=== PATIENT | female | born 1990 | race Caucasian/White ===

== ENCOUNTER 2023-02-27 03:26 | Emergency (ER) | payer MEDICAID, SELFPAY ==
[2023-02-27 03:54] VITALS: BP 115/78; PULSE 115; RESP 20; TEMP 36.7; O2SAT 99; BMI 29.3
[2023-02-27 04:22] LABS: Alanine Aminotransferase 9 U/L (0-31); Albumin Level 4.5 g/dL (3.5-5.0); Alkaline Phosphatase 77 U/L (39-117); Anion Gap 12 (12-20); Aspartate Amino Transferase 13 U/L (5-31); Bilirubin Total 0.6 mg/dL (0.0-1.0); Blood Urea Nitrogen 14 mg/dL (9-16); Calcium 9.5 mg/dL (8.4-10.2); Carbon Dioxide 26 mmol/L (22-29); Chloride 107 mmol/L (96-108); Creatinine Clr Calc Pharmacy 101.7; Estimated Glomerular Filt Rate > 60; Glucose Random 98 mg/dL (60-115); Lipase 16 U/L (8-78); Potassium 3.3 mmol/L (3.3-5.1); Sodium 142 mmol/L (135-145); Total Protein 7.5 g/dL (6.5-8.0)
[2023-02-27 04:23] LABS: Hemoglobin 13.4 g/dl (12.0-16.0); Mean Corpuscular HGB Conc 33.5 g/dl (31.0-35.0); Mean Corpuscular Hemoglobin 30.7 pg (27.0-33.0); Mean Corpuscular Volume 91.5 fL (80.0-98.0); Mean Platelet Volume 10.7 fL (9.4-12.3); Platelet Count 295 X10*3/uL (160-400); Red Blood Count 4.37 X10*6/uL (4.20-5.50); Red Cell Distribution Width 12.4 % (11.0-16.0)
--- OUTSIDE RECORDS SUMMARY | 2023-02-27 04:38 | XMS_ITS | Continuity of Care Document ---
Author Name Unknown Organization [facility] Address [address] [place] [address]- Care Team Providers Care Medical Transcriptionist Name Role Phone Not on Staff, PCP Primary Care Physician Unavail able Encounter [facility] Date(s): 09/21/22 - 09/21/[address] [address]- Discharge Disposition: A-D/C Home Attending Physician: Jarrod Mcmullen MD Admitting Physician: Jarrod Mcmullen MD Referring Physician: Not on Staff, Referring MD Allergies, Adverse Reactions, Alerts Substance Reaction Severity Status amoxicillin Maculopapular rash Active penicillin Active aspirin Active Nuts diff breathing Active Immunizations Given and Recorded Vaccine Date Status Refusal Reason tetanus/diphtheria/pertussis, acel(Tdap) 1 10/28/19 Given 1Result Comment: [facility]#[id number] Medications hydrOXYzine hydrochloride 25 mg oral tablet 1 tablet = 25 mg, By Mouth, Daily, # 30 tablet, 0 Refills, Maintenance, 03/26/22 4:00:00 EDT, Tablet, Partial fill upon patient request if the prescription is for a schedule II opioid drug. Start Date: 03/26/22 Status: Ordered omeprazole 20 mg oral delayed release tablet 1 tablet = 20 mg, By Mouth, Daily, # 30 tablet, 0 Refills, Maintenance, 03/26/22 5:49:00 EDT, EC Tablet, [id number], Partial fill upon patient request if the prescription is for a schedule IIopioid drug., 165, cm, 03/26/22 3:57:00 EDT, Height... Start Date: 03/26/22 Status: Ordered Problem List Condition Confirmation Course Effective Dates Status H ealth Status Informant History of conization of cervix Confirmed Active Hyperthyroidism Confirmed Active Nausea/vomiting in Confirmed Active Confirmed Active Thyroid function test abnormal Confirmed Active Uterine scar from previous delivery Confirmed Active Results Radiology Reports * Exam Date Time Procedure Performing Provider Status 09/21/22 11:00 AM Hand Min 3 Views Right Teodoro Araujo herminio; Sotero (Verified) Notes: (Hand Min 3 Views Right) Reason For Exam: Pain RESULT: Hand Min 3 Views Right Right hand, 3 views Hx of Present Illness: 5th finger pain after crush injury COMPARISON: None. FINDINGS: 5th finger is obscured by overlapping bones on the lateral view but there is no evidence of fracture or malalignment. No arthritic changes. Normal soft tissues. IMPRESSION: Normal. WSN: [id number] Ordering Physician: Hayden Ferguson Dictated By: Toribio Hicks MD Dictated Date/Time: 09/21/22 11:11 a Reviewed By: Toribio Hicks MD Signed By: Toribio Hicks MD Signed Date/Time: 09/21/22 11:11 am Transcribed By: AMADOU Transcribed Date/Time: 09/21/22 11:09 am Vital Signs Most recent to oldest [Reference Range]: 1 Height 158 cm (09/21/22 10:37 AM) Weight 72.6 kg (09/21/22 10:37 AM) Oxygen Saturation [94-100 %] 97 % (09/21/22 10:37 AM) Pulse Rate [55-90 bpm] 92 bpm *H* (09/21/22 10:37 AM) Blood Pressure [90-138/55-84 mm Hg] 112/ 74mm Hg (09/21/22 10:37 AM) Respiratory Rate [16-30 br/min] 17 br/mi n (09/21/22 10:37 AM) Temperature [96.8-100.4 DegF] 97.9 DegF (09/21/22 10:37 AM) Mode of Delivery (Oxygen) Room air (09/21/22 10:37 AM) Temperature Route Temporal (09/21/22 10:37 AM) Dry Weight 72.6 kg (09/21/22 10:37 AM) Dry Weight Obtained Via Standing scale (09/21/22 10:37 AM) Social History Social History Type Response Smoking Status Former smoker, quit more than 30 days ago entered on: 11/19/19 Sex Note * Kemi GARCIA, Jarrod Linares: PERFORM Event Display: Patient Education Leaflets Authored Date: [id number] Finger Bruise (Contusion) ?? [id number] Finger Bruise (Contusion) You have a bruise (contusion). There is swelling and some bleeding under the skin, but no broken bones. This injury??generally??takes a few days to a few weeks to heal. During that time, the bruise will typically change in color from??reddish, to purplish-blue, to greenish-yellow, then to yellowish-brown. A finger bruise may be treated with a splint or gin tape (taping the injured finger to the one next to it for support). Minor bruises likely will need no other treatment. Home care ??? Elevate the hand to reduce pain and swelling.??As much as possible, sit or lie down with the hand raised about the level of your heart.??This is most important during the first 48 hours. ??? Ice the finger to help reduce pain and swelling.??Wrap a cold source (ice pack??or ice cubes in a plastic bag) in a thin towel. Apply to the bruised finger for 20 minutes every 1 to 2 hours the first day. Continue this 3 to 4 times a day until the pain and swelling goes away. ??? If gin tapewas applied and it becomes wet or dirty, change it. You may replace it with paper, plastic, or cloth tape.??Before taping, put a thin strip of cotton or gauze between the fingers to absorb sweat. This will help prevent any breakdown of skin or fungal infections.? Unless another medicine was prescribed, you can take acetaminophen, ibuprofen, or naproxen??to control pain. Talk with your provider before taking these medicines if you have chronic liver or kidney disease or ever had a stomach ulcer or gastrointestinal bleeding. ?? Follow up Follow up with your healthcare provider, or as advised. Call if you are not improving within??1 to 2 weeks. ?? When to get medical advice?? Call your healthcare provider right away if any of the following occur: ??? Pain or swelling gets worse ??? Finger, hand, or arm becomes cold, blue, numb, or tingly ??? Signs of infection:??Warmth, drainage, or increased redness or pain around the bruise ??? You can't move the injured finger or hand? Frequent bruising for unknown reason ??? The fingernail becomes raised, and blood seems to be collecting under the nail. This may need to be drained. ?? Last Reviewed Date: 2022 ?? [id number] [employer]. All rights reserved. This information is not intended as a substitute for professional medical care. Always follow your healthcare professional's instructions. ?? * Kemi GARCIA, Jarrod Linares: PERFORM Event Display: Patient Education Leaflets Authored Date: [id number] Hand Bruise ?? [id number] Hand Bruise You have a bruise (contusion). There is swelling and some bleeding under the skin, but no broken bones. This injury??generally??takes a few days to a few weeks to heal. ??During that time, the bruisewill typically change in color from??reddish, to purple-blue, to greenish-yellow, then to yellow-brown. Home care ??? Raise (elevate) the hand to reduce pain and swelling.??As much as possible, sit or lie down with the hand raised about the level of your heart.??This is especially important during the first 48 hours. ??? Ice the hand to help reduce pain and swelling.??To make an ice pack, place ice cubes in a plastic bag that seals at the top. Wrap the bag in a thin towel. Apply to the bruised areafor 20 minutes every 1 to 2 hours the first day. Continue this 3 to 4 times a day until the pain and swelling goes away. ??? Unless another medicine was prescribed, you can take acetaminophen, ibuprofen, or naproxen??to control pain. Talk with your healthcare provider before using these medicines if you have chronic liver or kidney disease. Also talk with your provider first if you've ever had a stomach ulcer or digestive tract bleeding. ?? Follow up Follow up with your healthcare provider as advised. Call if you don't get better in??1 to 2 weeks. ?? When to get medical advice?? Call your healthcare provider right away if any of the following occur: ??? Increased pain or swelling ??? Arm becomes cold, blue, numb, or tingly ??? Signs of infection:??warmth, drainage, or increased redness or pain around the bruise ??? Inability to move the injured hand, any of the fingers, orthe joints of the finger ??? Frequent bruising for unknown reasons ?? Last Reviewed Date: 2021 ?? [id number] [employer]. All rights reserved. This information is not intended as a substitute for professional medical care. Always follow your healthcare professional's instructions. ?? XR Hand - right GE 3 Views * Miguel , ELANA S: TRANSCRIToribio Corea MD: VERIFY Event Display: Result: Authored Date: [id number] Right hand, 3 views Hx of Present Illness: 5th finger pain after crush injury COMPARISON: None. FINDINGS: 5th finger is obscured by overlapping bones on the lateral view but there is no evidence of fracture or malalignment. No arthritic changes. Normal soft tissues. IMPRESSION: Normal. WSN: [id number] Ordering Physician: Hayden Ferguson Dictated By: Toribio Hicks MD Dictated Date/Time: 09/21/22 11:11 a Reviewed By: Toribio Hicks MD Signed By: Toribio Hicks MD Signed Date/Time: 09/21/22 11:11 am Transcribed By: AMADOU Transcribed Date/Time: 09/21/22 11:09 am Patient Care team information Care Team Personnel Name: Not on Staff, PCP Position: [facility] Physician (General Medicine) Member Role: PCP Name: Jarrod Mcmullen MD Position: [facility] ED Medicine MD Member Role: Admitting Physician Address: Address: [address] [place] [address]- [place] [address]- Name: Itzel Carlin RN Position: [facility] ED RN W/OE and Tasks Member Role: Patient Care Provider Care Team Related Persons Name: OSEAS MORENO Address: home [address] [place] [address] Name: NOÉ ALBERT Address: [employer] Address: home [address] [place] [address] Name: KRISTIN ALBERT Address: home [address] [place] [address] Name: FRANCESCO VILLARREAL Address: home [address] [place] [address]
--- OUTSIDE RECORDS SUMMARY | 2023-02-27 04:38 | XMS_ITS | Continuity of Care Document ---
Author Name Unknown Organization [facility] Address [address] [place] [address]- Care Team Providers Care Radio Adjuster Name Role Phone Not on Staff, PCP Primary Care Physician Unavail able Encounter [facility] Date(s): 06/05/19 - 06/12/[address] [address]- [facility] Attending Physician: Deepika Grossman DO Allergies, Adverse Reactions, Alerts Substance Reaction Severity Status amoxicillin Maculopapular rash Active penicillin Active aspirin Active Nuts diff breathing Active Medications Colace sodium 100 mg oral capsule 100 mg, 1, capsule, By Mouth, 2 times a day, PRN, # 30 capsule, Refills 1, Tot. Refills 1, Maintenance, for constipation, 06/05/19 19:03:00 EST, Route to [facility]ically, [id number], 158, cm, 06/05/19 15:36:00 EST, Height, 63.6, kg, 01... Start Date: 06/05/19 Status: Ordered propylthiouracil 50 mg oral tablet 1 tablet = 50 mg, By Mouth, 2 times a day, # 90 tablet, 1 Refills, Maintenance, 06/05/19 19:02:00 EST, Tablet, [id number], 158, cm, 06/05/19 15:36:00 EST, Height, 63.6, kg, 05/28/19 14:38:00 EST, Dry Weight Start Date: 06/05/19 Status: Ordered Reglan 10 mg oral tablet 1 tablet = 10 mg, By Mouth, 4 times a day, for 10 days, # 40 tablet, 0 Refills, Acute 06/15/19 19:03:00 EST, 06/05/19 19:03:00 EST, Tablet, [facility] #[id number], 158, cm, 06/05/19 15:36:00 EST, Height,63.6, kg, 05/28/19 14:38:00 EST, Dry Weight Start Date: 06/05/19 Stop Date: 06/15/19 Status: Ordered Zofran ODT 4 mg oral tablet, disintegrating 1 tablet = 4 mg, By Mouth, Every 8 hours, PRN as needed for nausea/vomiting, # 30 tablet, 0 Refills, Maintenance, 06/05/19 19:03:00 EST, DIS Tablet, [facility]/pharm[facility] #[id number], 158, cm, 06/05/19 15:36:00 EST, Height, 63.6, kg, 05/28/19 14:38:00 EST, Dry Weight Start Date: 06/05/19 Status: Ordered Problem List Condition Effective Dates Status Health Status Inform ant Hyperthyroidism(Confirmed) Active Nausea/vomiting in (Confirmed) Active (Confirmed) Active Social History Social History Type Response Smoking Status Former smoker, quit more than 30 days ago entered on: 07/12/18 Sex
--- OUTSIDE RECORDS SUMMARY | 2023-02-27 04:38 | XMS_ITS | Continuity of Care Document ---
Author Name Unknown Organization [facility] Address [address] [place] [address]- Care Team Providers Care Jumbo Operator Name Role Phone Not on Staff, PCP Primary Care Physician Unavail able Encounter [facility] N[facility] [id number] Date(s): 05/28/19 - 05/28/[address] [address]- [facility] Discharge Disposition: A-D/C Home Attending Physician: Andrew Quigley MD Admitting Physician: Andrew Quigley MD Referring Physician: Not on Staff, Referring MD Allergies, Adverse Reactions, Alerts Substance Reaction Severity Status amoxicillin Maculopapular rash Active penicillin Active aspirin Active Nuts diff breathing Active Medications Benadryl 25 mg oral tablet 25 mg, 1, tablet, By Mouth, 3 times a day, 0 Refills, Maintenance Start Date: 05/28/19 Status: Ordered Zofran ODT 4 mg oral tablet, disintegrating 1 tablet = 4 mg, By Mouth, Every 8 hours, PRN as needed for nausea/vomiting, # 20 tablet, 0 Refills, Maintenance, 05/28/19 16:25:00 EST, DIS Tablet, [facility]/pharm[facility] #[id number], 158, cm, 05/28/19 14:38:00 EST, Height, 63.6, kg, 05/28/19 14:38:00 EST, Dry Weight Start Date: 05/28/19 Status: Ordered Vital Signs Most recent to oldest [Reference Range]: 1 2 Height 158 cm (05/28/19 2:38 PM) Weight 63.6 kg (05/28/19 2:38 PM) Oxygen Saturation [94-100 %] 100 % (05/28/19 5:09 PM) 100 % (05/28/19 2:38 PM) Pulse Rate [55-90 bpm] 80 bpm (05/28/19 5:09 PM) 93 bpm *H* (05/28/19 2:38 PM) Blood Pressure [90-138/55-84 mm Hg] 106/ 75mm Hg (05/28/19 5:09 PM) 113/58mm Hg (05/28/19 2:38 PM) Respiratory Rate [16-30 br/min] 16 br/mi n (05/28/19 2:38 PM) Temperature [96.8-100.4 DegF] 99.4 DegF (05/28/19 2:38 PM) Mode of Delivery (Oxygen) Room air (05/28/19 5:09 PM) Room air (05/28/19 2:38 PM) Blood pressure sites Arm, left (05/28/19 5:09 PM) Temperature Route Temporal (05/28/19 2:38 PM) Dry Weight 63.6 kg (05/28/19 2:38 PM) Social History Social History Type Response Smoking Status Former smoker, quit more than 30 days ago entered on: 07/12/18 Sex
--- OUTSIDE RECORDS SUMMARY | 2023-02-27 04:38 | XMS_ITS | Continuity of Care Document ---
Author Name Unknown Organization [facility] Address [address] [place] [address]- Care Team Providers Care Residential Door Unit Installer Name Role Phone Not on Staff, PCP Primary Care Physician Unavail able Encounter [facility] [id number] Date(s): 06/12/20 - 06/12/[address] [address]- Discharge Disposition: A-D/C Home Attending Physician: Liam Reeves MD Admitting Physician: Liam Reeves MD Referring Physician: Not on Staff, Referring MD Allergies, Adverse Reactions, Alerts Substance Reaction Severity Status amoxicillin Maculopapular rash Active penicillin Active aspirin Active Nuts diff breathing Active Immunizations Given and Recorded Vaccine Date Status Refusal Reason tetanus/diphtheria/pertussis, acel(Tdap) 1 10/28/19 Given 1Result Comment: [facility]#[id number] Problem List Condition Effective Dates Status Health Status Inform ant History of conization of cervix(Confirmed) Active Hyperthyroidism(Confirmed) Active Nausea/vomiting in (Confirmed) Active (Confirmed) Active Thyroid function test abnormal(Confirmed) Active Uterine scar from previous c esarean delivery(Confirmed) Active Vital Signs Most recent to oldest [Reference Range]: 1 Height 158 cm (06/12/20 12:04 PM) Weight 75 kg (06/12/20 12:04 PM) Oxygen Saturation [94-100 %] 98 % (06/12/20 12:04 PM) Pulse Rate [55-90 bpm] 93 bpm *H* (06/12/20 12:04 PM) Blood Pressure [90-138/55-84 mm Hg] 106/ 71mm Hg (06/12/20 12:04 PM) Respiratory Rate [16-30 br/min] 16 br/mi n (06/12/20 12:04 PM) Temperature [96.8-100.4 DegF] 97.9 DegF (06/12/20 12:04 PM) Mode of Delivery (Oxygen) Room air (06/12/20 12:04 PM) Blood pressure sites Arm, left (06/12/20 12:04 PM) Temperature Route Temporal (06/12/20 12:04 PM) Dry Weight 75 kg (06/12/20 12:04 PM) Weight Obtained Via Standing scale (06/12/20 12:04 PM) Dry Weight Obtained Via Standing scale (06/12/20 12:04 PM) Social History Social History Type Response Smoking Status Former smoker, quit more than 30 days ago entered on: 11/19/19 Sex
--- OUTSIDE RECORDS SUMMARY | 2023-02-27 04:38 | XMS_ITS | Continuity of Care Document ---
Author Name Unknown Organization [facility] ter Address [address] [place] [address]- Care Team Providers Care Manager Image Name Role Phone Not on Staff, PCP Primary Care Physician Unavail able Encounter [facility] Date(s): 07/09/19 - 07/09/[address] [address]- [facility] Attending Physician: Not on Staff, Attending MD Allergies, Adverse Reactions, Alerts Substance Reaction Severity Status amoxicillin Maculopapular rash Active penicillin Active aspirin Active Nuts diff breathing Active Medications Colace sodium 100 mg oral capsule 100 mg, 1, capsule, By Mouth, 2 times a day, PRN, # 30 capsule, Refills 1, Tot. Refills 1, Maintenance, for constipation, 06/05/19 19:03:00 EST, Route to Pharmacy Electronically, [facility]/pharmacy #[id number], 158, cm, 06/05/19 15:36:00 EST, Height, 63.6, kg, 01... Start Date: 06/05/19 Status: Ordered Problem List Condition Effective Dates Status Health Status Inform ant History of conization of cervix(Confirmed) Active Hyperthyroidism(Confirmed) Active Nausea/vomiting in (Confirmed) Active (Confirmed) Active Thyroid function test abnormal(Confirmed) Active Uterine scar from previous c esarean delivery(Confirmed) Active Social History Social History Type Response Smoking Status Former smoker, quit more than 30 days ago entered on: 07/12/18 Sex
--- OUTSIDE RECORDS SUMMARY | 2023-02-27 04:38 | XMS_ITS | Continuity of Care Document ---
Author Name Unknown Organization [facility] ter Address [address] [place] [address]- Care Team Providers Care Operations And Maintenance Manager Name Role Phone Not on Staff, PCP Primary Care Physician Unavail able Encounter [facility] Date(s): 11/19/19 - 11/19/[address] [address]- [facility] Discharge Disposition: A-D/C Home Attending Physician: Marceal Kumar MD Admitting Physician: Marcela Kumar MD Referring Physician: Marcela Kumar MD Allergies, Adverse Reactions, Alerts Substance Reaction Severity Status amoxicillin Maculopapular rash Active penicillin Active aspirin Active Nuts diff breathing Active Immunizations Given and Recorded Vaccine Date Status Refusal Reason tetanus/diphtheria/pertussis, acel(Tdap) 1 10/28/19 Given 1Result Comment: [facility]#[id number] Medications Colace sodium 100 mg oral capsule 100 mg, 1, capsule, By Mouth, 2 times a day, PRN, # 30 capsule, Refills 1, Tot. Refills 1, Maintenance, for constipation, 06/05/19 19:03:00 EST, [id number], 158, cm, 06/05/19 15:36:00 EST, Height, 63.6, kg, 01... Start Date: 06/05/19 Status: Ordered Problem List Condition Effective Dates Status Health Status Inform ant History of conization of cervix(Confirmed) Active Hyperthyroidism(Confirmed) Active Nausea/vomiting in (Confirmed) Active (Confirmed) Active Thyroid function test abnormal(Confirmed) Active Uterine scar from previous c esarean delivery(Confirmed) Active Vital Signs Most recent to oldest [Reference Range]: 1 Weight 70.6 kg (11/19/19 10:48 AM) Oxygen Saturation [94-100 %] 98 % (11/19/19 11:02 AM) Blood Pressure [90-138/55-84 mm Hg] 102/ 51mm Hg (11/19/19 11:02 AM) Respiratory Rate [16-30 br/min] 18 br/mi n (11/19/19 11:02 AM) Temperature [96.8-100.4 DegF] 98.2 DegF (11/19/19 11:02 AM) Mode of Delivery (Oxygen) Room air (11/19/19 11:02 AM) Blood pressure sites Arm, right (11/19/19 11:02 AM) Temperature Route Oral (11/19/19 11:02 AM) Dry Weight 70.6 kg (11/19/19 10:48 AM) Weight Obtained Via Standing scale (11/19/19 10:48 AM) Dry Weight Obtained Via Standing scale (11/19/19 10:48 AM) Social History Social History Type Response Smoking Status Former smoker, quit more than 30 days ago entered on: 11/19/19 Sex
--- OUTSIDE RECORDS SUMMARY | 2023-02-27 04:38 | XMS_ITS | Continuity of Care Document ---
Author Name Unknown Organization [facility] Address [address] [place] [address]- Care Team Providers Care Marketing Graphics Specialist Name Role Phone Not on Staff, PCP Primary Care Physician Unavail able Encounter [facility] Date(s): 06/21/21 - 07/21/21 [facility] [address] [place] [address]- Allergies, Adverse Reactions, Alerts Substance Reaction Severity Status amoxicillin Maculopapular rash Active penicillin Active aspirin Active Nuts diff breathing Active Immunizations Given and Recorded Vaccine Date Status Refusal Reason tetanus/diphtheria/pertussis, acel(Tdap) 1 10/28/19 Given 1Result Comment: [facility]#[id number] Problem List Condition Effective Dates Status Health [...]
--- OUTSIDE RECORDS SUMMARY | 2023-02-27 04:38 | XMS_ITS | Continuity of Care Document ---
Author Name Unknown Organization [facility] ter Address [address] [place] [address]- Care Team Providers Care Manager Of Software Name Role Phone Not on Staff, PCP Primary Care Physician Unavail able Encounter [facility] Date(s): 12/28/19 - 12/28/[address] [address]- [facility] Discharge Disposition: A-D/C Home Attending Physician: Deepika Grossman DO Admitting Physician: Deepika Grossman DO Referring Physician: Deepika Grossman DO Allergies, Adverse Reactions, Alerts Substance Reaction Severity Status amoxicillin Maculopapular rash Active penicillin Active aspirin Active Nuts diff breathing Active Immunizations Given and Recorded Vaccine Date Status Refusal Reason tetanus/diphtheria/pertussis, acel(Tdap) 1 10/28/19 Given 1Result Comment: [facility]#[id number] Medications No Known Medications Problem List Condition Effective Dates Status Health Status Inform ant History of conization of cervix(Confirmed) Active Hyperthyroidism(Confirmed) Active Nausea/vomiting in (Confirmed) Active (Confirmed) Active Thyroid function test abnormal(Confirmed) Active Uterine scar from previous c esarean delivery(Confirmed) Active Vital Signs Most recent to oldest [Reference Range]: 1 Weight 72.8 kg (12/28/19 3:19 PM) Blood Pressure [90-138/55-84 mm Hg] 109/ 67mm Hg (12/28/19 3:19 PM) Respiratory Rate [16-30 br/min] 20 br/mi n (12/28/19 3:19 PM) Temperature [96.8-100.4 DegF] 98.1 DegF (12/28/19 3:19 PM) Blood pressure sites Arm, right (12/28/19 3:19 PM) Temperature Route Oral (12/28/19 3:19 PM) Social History Social History Type Response Smoking Status Former smoker, quit more than 30 days ago entered on: 11/19/19 Sex
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
[2023-02-27 04:39] VITALS: BP 106/65; PULSE 74; RESP 18; O2SAT 99
--- OUTSIDE RECORDS SUMMARY | 2023-02-27 04:39 | XMS_ITS | Continuity of Care Document ---
Author Name Unknown Organization [facility] Address [address] [place] [address]- Care Team Providers Care Winder Tender Name Role Phone Not on Staff, PCP Primary Care Physician Unavail able Encounter [facility] [place](s[place] 08/26/19 - 09/26/19 [facility] [address] [place] [address] [facility] Attending Physician: Ahsan GARCIA, Sanjuana Referring Physician: Fletcher GARCIA, Ibitordarren Allergies, Adverse Reactions, Alerts Substance Reaction Severity [...]
--- OUTSIDE RECORDS SUMMARY | 2023-02-27 04:39 | XMS_ITS | Continuity of Care Document ---
Author Name Unknown Organization [facility] Address [address] [place] [address]- Care Team Providers Care Track Repairer Helper Name Role Phone Not on Staff, PCP Primary Care Physician Unavail able Encounter [facility] NBR [id number] Date(s): 03/26/22 - 03/26/[address] [address]- Discharge Disposition: A-D/C Home Attending Physician: Mariajose Soto MD Admitting Physician: Mariajose Soto MD Referring Physician: Not on Staff, Referring MD Allergies, Adverse Reactions, Alerts Substance Reaction Severity Status amoxicillin Maculopapular rash Active penicillin Active aspirin Active Nuts diff breathing Active Immunizations Given and Recorded Vaccine Date Status Refusal Reason tetanus/diphtheria/pertussis, acel(Tdap) 1 10/28/19 Given 1Result Comment: [facility]#[id number] Medications hydrOXYzine hydrochloride 25 mg oral tablet [...] Maintenance, 03/26/22 5:49:00 EDT, EC Tablet, [id number], Partial fill upon patient request if the [...] Exam Date Time Procedure Performing Provider Status 03/26/22 4:26 AM Chest 2 Views Frontal and Lat Sania Fall; Sotero (Verified) Notes: (Chest 2 Views Frontal and Lat) Reason For Exam: Chest Pain;Other: RESULT: Chest 2 Views Frontal and Lat Chest 2 Views Frontal and Lat HX OF PRESENT ILLNESS: Pt complaining of left sided chest wall pain under her breast that started yesterday- worse when taking a deep breath in and when she is eating.; Reason: Chest Pain COMPARISON: 01/31/2021 FINDINGS: LINES AND TUBES: None. LUNGS AND PLEURA: Clear lungs. Normal pulmonary vascularity. No pleural effusion. No pneumothorax. HEART, MEDIASTINUM AND CHANA: Heart is normal in size. Normal mediastinal and hilar contour. BONES AND SOFT TISSUES: No acute abnormality. IMPRESSION: Normal. WSN: [id number] Ordering Physician: Mariajose Soto Dictated By: Owne Lima MD Dictated Date/Time: 03/26/22 7:54 am Reviewed By: Owen Lima MD Signed By: Owen Lima MD Signed Date/Time: 03/26/22 7:54 am Transcribed By: AMADOU Transcribed Date/Time: 03/26/22 7:54 am Vital Signs Most recent to oldest [Reference Range]: 1 2 Height 165 cm (03/26/22 3:57 AM) Weight 73.8 kg (03/26/22 3:57 AM) Oxygen Saturation [94-100 %] 99 % (03/26/22 5:58 AM) 100 % (03/26/22 3:57 AM) Pulse Rate [55-90 bpm] 70 bpm (03/26/22 5:58 AM) 114 bpm *H* (03/26/22 3:57 AM) Blood Pressure [90-138/55-84 mm Hg] 100/ 66mm Hg (03/26/22 5:58 AM) 113/94mm Hg (03/26/22 3:57 AM) Respiratory Rate [16-30 br/min] 28 br/mi n (03/26/22 3:57 AM) Temperature [96.8-100.4 DegF] 98.2 DegF (03/26/22 5:58 AM) 97.3 DegF (03/26/22 3:57 AM) Mode of Delivery (Oxygen) Room air (03/26/22 5:58 AM) Room air (03/26/22 3:57 AM) Blood pressure sites Arm, right (03/26/22 5:58 AM) Arm, left (03/26/22 3:57 AM) Temperature Route Oral (03/26/22 5:58 AM) Temporal (03/26/22 3:57 AM) Dry Weight 73.8 kg (03/26/22 3:57 AM) Weight Obtained Via Standing scale (03/26/22 3:57 AM) Dry Weight Obtained Via Standing scale (03/26/22 3:57 AM) Social History Social History Type Response Smoking Status Former smoker, quit more than 30 days ago entered on: 11/19/19 Sex Note * [employer] , CIS S: TRANSCRIBE Owen Lima MD S: VERIFY Event Display: Result: Authored Date: [id number] Chest 2 Views Frontal and Lat HX OF PRESENT ILLNESS: Pt complaining of left sided chest wall pain under her breast that started yesterday- worse when taking a deep breath in and when she is eating.; Reason: Chest Pain COMPARISON: 01/31/2021 FINDINGS: LINES AND TUBES: None. LUNGS AND PLEURA: Clear lungs. Normal pulmonary vascularity. No pleural effusion. No pneumothorax. HEART, MEDIASTINUM AND CHANA: Heart is normal in size. Normal mediastinal and hilar contour. BONES AND SOFT TISSUES: No acute abnormality. IMPRESSION: Normal. WSN: [id number] Ordering Physician: Mariajose Soto Dictated By: Owen Lima MD Dictated Date/Time: 03/26/22 7:54 am Reviewed By: Owen Lima MD Signed By: Owen Lima MD Signed Date/Time: 03/26/22 7:54 am Transcribed By: AMADOU Transcribed Date/Time: 03/26/22 7:54 am Patient Care team information Personnel Name: Not on Staff, PCP
--- OUTSIDE RECORDS SUMMARY | 2023-02-27 04:39 | XMS_ITS | Continuity of Care Document ---
Author Name Unknown Organization [facility] ter Address [address] [place] [address]- Care Team Providers Care Duralumin Mechanic Name Role Phone Not on Staff, PCP Primary Care Physician Unavail able Encounter [facility] Date(s): 06/05/19 - 06/05/[address] [address]- [facility] Discharge Disposition: A-D/C Home Attending Physician: Deepika [...] 06/05/19 19:03:00 EST, Route to Pharmacy Electronically, [facility]/pharmacy #[id number], 158, cm, 06/05/19 15:36:00 EST, Height, 63.6, kg, 01... Start Date: 06/05/19 Status: Ordered propylthiouracil 50 mg oral tablet 1 tablet = 50 mg, By Mouth, 2 times a day, # 90 tablet, 1 Refills, Maintenance, 06/05/19 19:02:00 EST, Tablet, [facility]/pharmacy #[id number], 158, cm, 06/05/19 15:36:00 EST, Height, 63.6, kg, 05/28/19 14:38:00 EST, Dry Weight Start Date: 06/05/19 Status: Ordered Reglan 10 mg oral tablet 1 tablet = 10 mg, By Mouth, 4 times a day, for 10 days, # 40 tablet, 0 Refills, Acute 06/15/19 19:03:00 EST, 06/05/19 19:03:00 EST, Tablet, [facility]/pharmacy #[id number], 158, cm, 06/05/19 15:36:00 EST, Height,63.6, kg, 05/28/19 14:38:00 EST, Dry Weight Start Date: 06/05/19 Stop Date: 06/15/19 Status: Ordered Zofran ODT 4 mg oral tablet, disintegrating 1 tablet = 4 mg, By Mouth, Every 8 hours, PRN as needed for nausea/vomiting, # 30 tablet, 0 Refills, Maintenance, 06/05/19 19:03:00 EST, DIS Tablet, [facility]/pharmacy #[id number], 158, cm, 06/05/19 15:36:00 EST, Height, 63.6, kg, 05/28/19 14:38:00 EST, Dry Weight Start Date: 06/05/19 Status: Ordered Procedures Procedure Date Related Diagnosis Body Site Status delivery 2016 Complet ed Cone biopsy 2013 Completed Appendectomy; 2011 Completed Vital Signs Most recent to oldest [Reference Range]: 1 Height 158 cm (06/05/19 3:36 PM) Weight 61.8 kg (06/05/19 3:33 PM) Pulse Rate [55-90 bpm] 90 bpm (06/05/19 3:36 PM) Blood Pressure [90-138/55-84 mm Hg] 109/ 70mm Hg (06/05/19 3:36 PM) Respiratory Rate [16-30 br/min] 18 br/mi n (06/05/19 3:36 PM) Temperature [96.8-100.4 DegF] 97.9 DegF (06/05/19 3:36 PM) Blood pressure sites Arm, left (06/05/19 3:36 PM) Temperature Route Oral (06/05/19 3:36 PM) Weight Obtained Via Standing scale (06/05/19 3:33 PM) Social History Social History Type Response Smoking Status Former smoker, quit more than 30 days ago entered on: 07/12/18 Sex
--- OUTSIDE RECORDS SUMMARY | 2023-02-27 04:39 | XMS_ITS | Continuity of Care Document ---
Author Name Unknown Organization [facility] Address [address] [place] [address]- Care Team Providers Care Financial Developer Name Role Phone Not on Staff, PCP Primary Care Physician Unavail able Encounter [facility] Date(s): 07/17/19 - 09/26/19 [facility] [address] [place] [address]- [facility] Attending Physician: Ahsan GARCIA, Sanjuana Admitting Physician: Ahsan GARCIA, Sanjuana Referring Physician: Fletcher GARCIA, June Allergies, Adverse Reactions, Alerts Substance Reaction Severity [...]
--- OUTSIDE RECORDS SUMMARY | 2023-02-27 04:39 | XMS_ITS | Continuity of Care Document ---
Author Name Unknown Organization [facility] ter Address [address] [place] [address]- Care Team Providers Care Library Aide Name Role Phone Not on Staff, PCP Primary Care Physician Unavail able Encounter [facility] Date(s): 07/09/19 - 07/09/[address] [address]- [facility] Attending Physician: Deepika Grossman DO Allergies, Adverse Reactions, Alerts Substance Reaction Severity Status amoxicillin Maculopapular rash Active penicillin Active aspirin Active Nuts diff breathing Active Medications Colace sodium 100 mg oral capsule 100 mg, 1, capsule, By Mouth, 2 times a day, PRN, # 30 capsule, Refills 1, Tot. Refills 1, Maintenance, for constipation, 06/05/19 19:03:00 EST, Route to Pharmacy Electronically, [facility]/pharmacy #[id number], 158, cm, 06/05/19 15:36:00 [...]
--- OUTSIDE RECORDS SUMMARY | 2023-02-27 04:39 | XMS_ITS | Continuity of Care Document ---
Author Name Unknown Organization [facility] Address [address] [place] [address]- Care Team Providers Care Form Setter/Driver Name Role Phone Not on Staff, PCP Primary Care Physician Unavail able Encounter [facility] Date(s): 08/27/19 - 09/06/19 [facility] [address] [place] [address] [facility] Attending Physician: Adela Henriquez Admitting Physician: AdmtrAdela Referring Physician: Admtr Ar8 Allergies, Adverse Reactions, Alerts Substance Reaction Severity Status amoxicillin Maculopapular rash Active penicillin Active aspirin Active Nuts diff breathing Active Medications Colace sodium 100 mg oral capsule 100 mg, 1, capsule, By Mouth, 2 times a day, PRN, # 30 capsule, Refills 1, Tot. Refills 1, Maintenance, for constipation, 06/05/19 19:03:00 EST, Route to Pharmacy Electronically, [facility]/pharmacy #[id number], 158, cm, 06/05/19 15:36:00 EST, [...]
--- OUTSIDE RECORDS SUMMARY | 2023-02-27 04:39 | XMS_ITS | Continuity of Care Document ---
Author Name Unknown Organization [facility] Address [address] [place] [address]- Care Team Providers Care Wafer Machine Operator Name Role Phone Not on Staff, PCP Primary Care Physician Unavail able Encounter [facility] Date(s): 04/17/21 - 04/18/[address] [address]- Discharge Disposition: A-D/C Home Attending Physician: Andrew Quigley MD Admitting Physician: Andrew Quigley MD Referring Physician: Not on Staff, Referring MD Allergies, Adverse Reactions, Alerts Substance Reaction Severity Status amoxicillin Maculopapular rash Active penicillin Active aspirin Active Nuts diff breathing Active Immunizations Given and Recorded Vaccine Date Status Refusal Reason tetanus/diphtheria/pertussis, acel(Tdap) 1 10/28/19 Given 1Result Comment: [facility]#[id number] Medications No Known Medications Problem List Condition Effective Dates Status Health Status Inform ant History of conization of cervix(Confirmed) Active Hyperthyroidism(Confirmed) Active Nausea/vomiting in (Confirmed) Active (Confirmed) Active Thyroid function test abnormal(Confirmed) Active Uterine scar from previous c esarean delivery(Confirmed) Active Results Radiology Reports * Exam Date Time Procedure Performing Provider Status 04/17/21 11:55 PM Knee 3 Views Right Beena Ochoa; Auth (Verified) Notes: (Knee 3 Views Right) Reason For Exam: Pain RESULT: Knee 3 Views Right Knee 3 Views Right CLINICAL INDICATION: Hx of Present Illness: right knee pain, banged knee on bed frame around 0430 this AM. Swollen and painfull. Tylenol taken @ 2230; Reason: Pain; Clinical Question(s): Dislocation COMPARISONS: None TECHNIQUE: 3 views of the right knee were obtained. FINDINGS: Mild medial soft tissue edema. Femoral-tibial joint space and alignment are normal. No fracture or dislocation. No joint effusion. The patella is normally positioned. IMPRESSION: Medial soft tissue edema-hematoma. No fracture or dislocation. No arthritic changes. WSN: [id number] Ordering Physician: Mariajose Soto Dictated By: Owen Diaz MD Dictated Date/Time: 04/17/21 11:57 p Reviewed By: Owen Diaz MD Signed By: Owen Diaz MD Signed Date/Time: 04/17/21 11:57 pm Transcribed By: AMADOU Transcribed Date/Time: 04/17/21 11:56 pm Vital Signs Most recent to oldest [Reference Range]: 1 2 Height 160 cm (04/18/21 1:56 AM) 160 cm (04/17/21 11:42 PM) Weight 78.7 kg (04/17/21 11:42 PM) Oxygen Saturation [94-100 %] 100 % (04/18/21 1:56 AM) 98 % (04/17/21 11:42 PM) Pulse Rate [55-90 bpm] 88 bpm (04/18/21 1:56 AM) 95 bpm *H* (04/17/21 11:42 PM) Blood Pressure [90-138/55-84 mm Hg] 116/ 77mm Hg (04/18/21 1:56 AM) 120/73mm Hg (04/17/21 11:42 PM) Respiratory Rate [16-30 br/min] 16 br/mi n (04/17/21 11:42 PM) Temperature [96.8-100.4 DegF] 98.0 DegF (04/18/21 1:56 AM) 98.2 DegF (04/17/21 11:42 PM) Mode of Delivery (Oxygen) Room air (04/18/21 1:56 AM) Room air (04/17/21 11:42 PM) Blood pressure sites Arm, left (04/18/21 1:56 AM) Arm, left (04/17/21 11:42 PM) Temperature Route Temporal (04/18/21 1:56 AM) Temporal (04/17/21 11:42 PM) Dry Weight 78.7 kg (04/17/21 11:42 PM) Weight Obtained Via Standing scale (04/17/21 11:42 PM) Dry Weight Obtained Via Standing scale (04/17/21 11:42 PM) Social History Social History Type Response Smoking Status Former smoker, quit more than 30 days ago entered on: 11/19/19 Sex
--- OUTSIDE RECORDS SUMMARY | 2023-02-27 04:39 | XMS_ITS | Continuity of Care Document ---
Author Name Unknown Organization [facility] ter Address [address] [place] [address]- Care Team Providers Care Assembly Technician Name Role Phone Not on Staff, PCP Primary Care Physician Unavail able Encounter [facility] Date(s): 07/09/19 - 07/09/[address] [address]- [facility] Attending Physician: Not on Staff, Attending MD Allergies, Adverse Reactions, Alerts Substance Reaction Severity Status amoxicillin Maculopapular rash Active penicillin Active aspirin Active Nuts diff breathing Active Medications Colace sodium 100 mg oral capsule 100 mg, 1, capsule, By Mouth, 2 times a day, PRN, # 30 capsule, Refills 1, Tot. Refills 1, Maintenance, for constipation, 06/05/19 19:03:00 EST, Route to Pharmacy Electronically, [facility]/pharmacy #[id number], 158, cm, 06/05/19 15:36:00 EST, Height, [...]
--- OUTSIDE RECORDS SUMMARY | 2023-02-27 04:39 | XMS_ITS | Continuity of Care Document ---
Author Name Unknown Organization [facility] Address [address] [place] [address]- Care Team Providers Care Chain Saw Driver Name Role Phone Not on Staff, PCP Primary Care Physician Unavail able Encounter [facility] Date(s): 01/31/21 - 02/01/[address] [address]- Discharge Disposition: A-D/C Home Attending Physician: Mariajose Soto MD Admitting Physician: Mariajose Soto MD Referring Physician: Not on Staff, Referring MD Allergies, Adverse Reactions, Alerts Substance Reaction Severity Status amoxicillin Maculopapular rash Active penicillin Active aspirin Active Nuts diff breathing Active Immunizations Given and Recorded Vaccine Date Status Refusal Reason tetanus/diphtheria/pertussis, acel(Tdap) 1 10/28/19 Given 1Result Comment: [facility]#[id number] Problem List Condition Effective Dates Status Health Status Inform ant History of conization of cervix(Confirmed) Active Hyperthyroidism(Confirmed) Active Nausea/vomiting in (Confirmed) Active (Confirmed) Active Thyroid function test abnormal(Confirmed) Active Uterine scar from previous c esarean delivery(Confirmed) Active Results Radiology Reports * Exam Date Time Procedure Performing Provider Status 02/01/21 12:14 AM Chest Portable Sania Richard; Sotero (Verified) Notes: (Chest Portable) Reason For Exam: Fever RESULT: Chest Portable Chest Portable Hx of Present Illness: fatigue, fever 102.2, Reason: Fever; Clinical Question(s): ARDS; COMPARISON: None. FINDINGS: LINES AND TUBES: None. LUNGS AND PLEURA: Clear lungs. Normal pulmonary vascularity. No pleural effusion. No pneumothorax. HEART, MEDIASTINUM AND CHANA: Heart is normal in size. Normal upper mediastinal and hilar contour. BONES AND SOFT TISSUES: No acute abnormality. IMPRESSION: No radiographic evidence of an acute cardiopulmonary process . I have personally reviewed the images and I agree with this report. WSN: [id number] Ordering Physician: Mariajose Soto Dictated By: Hosea Kurtz MD Dictated Date/Time: 02/01/21 8:18 am Reviewed By: Merrick Guillen MD Signed By: Merrick Guillen MD Signed Date/Time: 02/01/21 8:23 am Transcribed By: AMADOU Transcribed Date/Time: 02/01/21 7:58 am Vital Signs Most recent to oldest [Reference Range]: 1 2 Height 158 cm (01/31/21 9:34 PM) Weight 77.2 kg (01/31/21 9:34 PM) Oxygen Saturation [94-100 %] 99 % (02/01/21 12:59 AM) 99 % (01/31/21 9:34 PM) Pulse Rate [55-90 bpm] 82 bpm (02/01/21 12:59 AM) 91 bpm *H* (01/31/21 9:34 PM) Blood Pressure [90-138/55-84 mm Hg] 127/ 80mm Hg (02/01/21 12:59 AM) 123/72mm Hg (01/31/21 9:34 PM) Respiratory Rate [16-30 br/min] 17 br/mi n (02/01/21 12:59 AM) 17 br/min (01/31/21 9:34 PM) Temperature [96.8-100.4 DegF] 97.5 DegF (02/01/21 12:59 AM) 97.4 DegF (01/31/21 9:34 PM) Mode of Delivery (Oxygen) Room air (02/01/21 12:59 AM) Room air (01/31/21 9:34 PM) Blood pressure sites Arm, left (01/31/21 9:34 PM) Temperature Route Oral (01/31/21 9:34 PM) Dry Weight 77.2 kg (01/31/21 9:34 PM) Weight Obtained Via Standing scale (01/31/21 9:34 PM) Dry Weight Obtained Via Standing scale (01/31/21 9:34 PM) Social History Social History Type Response Smoking Status Former smoker, quit more than 30 days ago entered on: 11/19/19 Sex
--- OUTSIDE RECORDS SUMMARY | 2023-02-27 04:39 | XMS_ITS | Continuity of Care Document ---
Author Name Unknown Organization [facility] Address [address] [place] [address]- Care Team Providers Care Men'S And Boys' Clothing Salesperson Name Role Phone Not on Staff, PCP Primary Care Physician Unavail able Encounter [facility] Date(s): 06/09/19 - 07/12/19 [facility] [address] [place] [address] [facility] Attending Physician: hAsan GARCIA, Sanjuana Admitting Physician: Ahsan GARCIA, Sanjuana Referring Physician: Deepika Grossman DO Allergies, Adverse Reactions, Alerts Substance Reaction Severity Status amoxicillin Maculopapular rash Active penicillin Active aspirin Active Nuts diff breathing Active Medications Colace sodium 100 mg oral capsule 100 mg, 1, capsule, By Mouth, 2 times a day, PRN, # 30 capsule, Refills 1, Tot. Refills 1, Maintenance, for constipation, 06/05/19 19:03:00 EST, Route to Pharmacy Electronically, [facility]/pharmacy #[id number], 158, cm, 06/05/19 15:36:00 EST, [...]
[2023-02-27] MEDS: ondansetron HCL 4 MG/2 ML VIAL IVPUSH (04:41)
[2023-02-27] MEDS: 0.9 % Sodium Chloride 1,000 ML 999 ML IV (04:41)
--- NOTE | 2023-02-27 04:51 | PC.NURSE ---
Pt ambulated independently to room. C/o burning, squeezing flank pain, frequent urination, since yesterday at approximately 1700. Patient also states she has nausea and vomiting. Labs done in triage, Discussed with , IV started, NS and zofran given. At this time unable to give pain meds until seen by MD. This was explained to patient and she verbalized understanding.
[2023-02-27 06:08] VITALS: BP 110/62; PULSE 78; RESP 16; O2SAT 98
--- NOTE | 2023-02-27 06:31 | ED.GENADULT ---
HPI - General Adult General Chief complaint: General Medical Stated complaint: lower left back pain, possible UTI? Time Seen by Provider: 02/27/23 06:25 Source: patient Mode of arrival: ambulatory Limitations: no limitations History of Present Illness HPI narrative: Patient comes to the emergency room complaining of left-sided flank pain. Patient states it started a few days ago. Patient states that she is prone to urinary tract infections, last time she had a UTI was approximately 2 months ago. Patient complaining of mild nausea, no vomiting or diarrhea. Related Data Previous Rx's Medication Instructions Recorded levofloxacin 500 mg tablet 500 mg PO DAILY #10 tabs 02/27/23 Allergies Allergy/AdvReac Type Severity Reaction Status Date / Time amoxicillin Allergy Rash Verified 02/27/23 04:20 aspirin Allergy Rash Verified 02/27/23 04:20 Iodinated Contrast Media Allergy Swelling Verified 02/27/23 04:20 [IV Contrast Dye] oxycodone Allergy Rash Verified 02/27/23 04:20 Penicillins Allergy Rash Verified 02/27/23 04:20 Review of Systems Review of Systems: Constitutional : No Weight loss, No Fever, No Chills, No Night Sweats, No Fatigue, No Malaise ENT/Mouth : No Hearing loss, No Ear Pain, No Nasal Congestion, No Sinus Pain, No Hoarseness, No sore throat, No Rhinorrhea, No Swallowing Difficulty Eyes: No Eye Pain, No Swelling, No Redness, No Foreign Body, No Discharge, No Vision Changes Cardiovascular : No Chest Pain, No SOB, No Dyspnea on Exertion, No Orthopnea, No Edema, No Palpitations Respiratory : No Cough, No Sputum, No Wheezing, No Smoke Exposure, No Dyspnea Gastrointestinal : No Nausea, No Vomiting, No Diarrhea, No Constipation, No abdominal Pain, No Hematochezia, No Melena Genitourinary : Patient denies dysuria, No Urinary Frequency, No Hematuria, No Urinary Incontinence, complaining of Urgency, No Flank Pain, No Urinary Flow Changes, No Hesitancy Musculoskeletal : No joint pain, No Myalgias, No Joint Swelling Skin : No Skin Lesions, No rash Neuro : No Weakness, No Numbness, No Paresthesias, No Loss of Consciousness, No Dizziness, No Headache Psych : No Anxiety/Panic, No Depression, No SI/HI/AH/VH, No Social Issues, Heme/Lymph: No Bruising, No Bleeding,No Lymphadenopathy Endocrine : No Polyuria, No Polydipsia, No Temperature Intolerance PMF Social History Social History Smoked in Last 30 Days: No Use of substances other than those prescribed or required for medical reasons: Yes Substance Use Type: Marijuana Advance Directives: No Advance Directives Information Provided: No Patient : No Physical Exam ED Vital Signs: Vital Signs - 24 hr 02/27/23 03:54 02/27/23 04:39 02/27/23 06:08 Temperature 98.1 F Pulse Rate 115 H 74 78 Respiratory Rate 20 18 16 Blood Pressure 115/78 106/65 110/62 Pulse Oximetry 99 99 98 Oxygen Delivery Method Room Air Room Air Room Air BMI result Body Mass Index 29.3 Const Other: Appearance: Alert. Oriented X3. No acute distress. Eyes: Pupils equal, round and reactive to light. ENT: Pharynx normal. Neck: Normal inspection. Neck supple. No lymph nodes noted. No crepitus CVS: Normal heart rate and rhythm. Pulses normal. Normal S1 and S2 Respiratory: No respiratory distress. Breath sounds normal. No Wheezing. No rales Abdomen: Soft , mild tenderness to palpation in suprapubic area and left flank Skin: Skin warm and dry. Normal skin color. Normal skin turgor. Extremities: No lower extremity edema. No Lacerations. No Rash Neuro: Oriented X 3. No motor deficit. No sensory deficit. Moving all extremities. No slurred speech. CN 2 through 12 grossly intact Psych: calm, cooperative, normal affect Course Course Course Narrative: - Medications Administered Discontinued Medications Generic Name Dose Route Start Last Admin Trade Name Freq PRN Reason Stop Dose Admin Sodium Chloride 1,000 mls @ 999 mls/hr 02/27/23 04:45 02/27/23 04:41 Ns IV 02/27/23 05:45 999 mls/hr .Q1H1M MARY Administration Ketorolac Tromethamine 30 mg 02/27/23 06:30 02/27/23 06:47 Ketorolac Tromethamine 30 Mg/Ml Vial IVPUSH 02/27/23 06:31 30 mg ONCE ONE Administration Ondansetron HCl 4 mg 02/27/23 04:36 02/27/23 04:41 Ondansetron Hcl 4 Mg/2 Ml Vial IVPUSH 02/27/23 04:37 4 mg ONCE ONE Administration Medical Decision Making Medical Decision Making [facility] Narrative: My interpretation of labs: White blood cell count 11.0, chemistry unremarkable. Urine pending -patient's vital stable, blood pressure 110/62, no tachycardia. Sepsis not suspected. -patient states that she does not have history of kidney stones -my interpretation of labs, patient has a UTI. Given the patient's presentation, clinically patient has pyelonephritis, sepsis not suspected. Patient given levofloxacin in the emergency department 1st dose. Differential Diagnosis Differential Diagnoses: The differential diagnosis associated with the presentation includes (UTI, pyelonephritis a musculoskeletal pain kidney stone) Admission/Observation Consideration of admission/observation: Escalation of care including admission/observation considered (Given the patient's history of recurrent UTIs and symptoms, admission was considered.) Lab Data [facility] Lab Attestation statement: I reviewed the patient's lab results. 02/27/23 03:53 02/27/23 03:53 Labs: Lab Results 02/27/23 02/27/23 Range/Units 03:53 06:28 WBC 11.0 H (4.8-10.8) X10*3/uL RBC 4.37 (4.20-5.50) X10*6/uL Hgb 13.4 (12.0-16.0) g/dl Hct 40.0 (37.0-47.0) % MCV 91.5 (80.0-98.0) fL MCH 30.7 (27.0-33.0) pg MCHC 33.5 (31.0-35.0) g/dl RDW 12.4 (11.0-16.0) % Plt Count 295 (160-400) X10*3/uL MPV 10.7 (9.4-12.3) fL Absolute Nucleated RBC 0.000 (0.0-0.012) X10*3/uL Nucleated RBC % (auto) 0.0 (0.0-0.2) /100WBC Sodium 142 (135-145) mmol/L Potassium 3.3 (3.3-5.1) mmol/L Chloride 107 (96-108) mmol/L Carbon Dioxide 26 (22-29) mmol/L Anion Gap 12 (12-20) BUN 14 (9-16) mg/dL Creatinine 0.74 (0.5-1.4) mg/dL Estim Creat Clear Calc 101.7 Estimated GFR > 60 Random Glucose 98 (60-115) mg/dL Calcium 9.5 (8.4-10.2) mg/dL Total Bilirubin 0.6 (0.0-1.0) mg/dL AST 13 (5-31) U/L ALT 9 (0-31) U/L Alkaline Phosphatase 77 (39-117) U/L Total Protein 7.5 (6.5-8.0) g/dL Albumin 4.5 (3.5-5.0) g/dL Lipase 16 (8-78) U/L Urine Color Yellow Urine Appearance Cloudy Urine pH 7.5 (5.0-9.0) Ur Specific [place] 1.010 (1.005-1.025) Urine Protein 30 (1+) H (Neg-Trace) mg/dL Urine Glucose (UA) Negative (Negative) mg/dL Urine Ketones Negative (Negative) mg/dL Urine Blood Small (1+) H (Negative) Urine Nitrite Positive H (Negative) Ur Leukocyte Esterase Large (3+) H (Negative) Urine RBC 3-5 H (0-2) /HPF Urine WBC >50 H (0-5) /HPF Ur Squamous Epith Cells 0-2 (0-2) /HPF Urine Bacteria 4+ (None Seen) Hyaline Casts 0-2 (0-2) /LPF Critical Care Time Critical Care Time Critical Care Time: Yes Total Critical Care Time: 45 Attestation: I have personally provided critical care time. Time includes review of lab data, radiology results, discussion with consultants, and monitoring for potential decompensation. Intervention performed as documented. Discharge Plan Discharge Clinical Impression: Pyelonephritis Patient Disposition: Home, Self-Care Instructions: Kidney Infection (ED) Additional Instructions: Please follow-up with your primary care physician tomorrow. If you have any worsening or new symptoms, please return to the emergency room or call 911 Prescriptions: New levofloxacin 500 mg tablet 500 mg PO DAILY Qty: 10 0RF
[2023-02-27 06:38] LABS: Appearance Urine Cloudy; Color Urine Yellow; Glucose Urine UA Negative (Negative); Leukocyte Esterase Urine Large (3+) (Negative); Nitrite Urine Positive (Negative); PH 7.5 (5.0-9.0); UMIC TRIGGER UACC YES; Urine Blood Small (1+) (Negative); Urine Ketones Negative (Negative); Urine Protein 30 (1+) mg/dL (Neg-Trace)
[2023-02-27] MEDS: Ketorolac Tromethamine 30 MG/ML VIAL IVPUSH (06:47)
[2023-02-27 06:56] LABS: Bacteria Urine 4+ (None Seen); Hyaline Casts Urine 0-2 /LPF (0-2); Squamous Epithelial Cell Urine 0-2 /HPF (0-2); UACC Culture Trigger YES; WBC Urine >50 /HPF (0-5)
--- NOTE | 2023-02-27 07:24 | PC.NURSE ---
REsumed care of patient, she is currently resting in bed, reporting pain is much better after medication given by production shift supervisor. D/C in place at this time
[2023-02-27 07:27] VITALS: BP 109/78; PULSE 90; RESP 14; O2SAT 98
== END 2023-02-27 07:42 | disposition home or self-care (01) ==
PROVIDERS: Emergency Provider Emergency Medicine
DX: N12 Tubulo-interstitial nephritis, not specified as acute or chronic (principal); M54.50 Low back pain, unspecified; R10.2 Pelvic and perineal pain; R11.2 Nausea with vomiting, unspecified; Z79.899 Other long term (current) drug therapy
CPT/HCPCS: 36415; 80053; 81001; 83690; 85027; 87086; 87088; 87186; 96361; 96374; 96375; 99284; J1885; J2405

== ENCOUNTER 2023-05-04 00:31 | Emergency (ER) | payer MEDICAID, SELFPAY ==
--- NOTE | ~2023-05-04 | XR_ITS ---
EXAMINATION: XR CHEST CLINICAL INFORMATION: Rib pain. COMPARISON: None available. TECHNIQUE: 2 views of the chest were obtained. FINDINGS: No significant abnormality is noted involving the heart, lungs, mediastinum, bony thorax or soft tissues. XR/XR chest 2V IMPRESSION: Unremarkable examination.
[2023-05-04 00:40] VITALS: BP 111/72; PULSE 115; RESP 20; TEMP 37.4; O2SAT 98; BMI 26.7
[2023-05-04 00:59] LABS: Hematocrit 39.6 % (37.0-47.0); Hemoglobin 13.4 g/dl (12.0-16.0); Mean Corpuscular HGB Conc 33.8 g/dl (31.0-35.0); Mean Corpuscular Volume 88.8 fL (80.0-98.0); Mean Platelet Volume 10.2 fL (9.4-12.3); Platelet Count 226 X10*3/uL (160-400); Red Blood Count 4.46 X10*6/uL (4.20-5.50); Red Cell Distribution Width 12.2 % (11.0-16.0); White Blood Count 7.3 X10*3/uL (4.8-10.8)
[2023-05-04 01:23] LABS: Alanine Aminotransferase 9 U/L (0-31); Albumin Level 4.5 g/dL (3.5-5.0); Alkaline Phosphatase 77 U/L (39-117); Anion Gap 14 (12-20); Aspartate Amino Transferase 13 U/L (5-31); Bilirubin Total 0.3 mg/dL (0.0-1.0); Blood Urea Nitrogen 13 mg/dL (9-16); Calcium 9.3 mg/dL (8.4-10.2); Carbon Dioxide 25 mmol/L (22-29); Chloride 106 mmol/L (96-108); Creatinine Clr Calc Pharmacy 93.6; Estimated Glomerular Filt Rate > 60; Glucose Random 93 mg/dL (60-115); Potassium 3.6 mmol/L (3.3-5.1); Sodium 141 mmol/L (135-145); Total Protein 7.6 g/dL (6.5-8.0)
[2023-05-04 01:36] LABS: Influenza A PCR NEGATIVE (Negative); Influenza B PCR NEGATIVE (Negative); Resp Syncy Virus RNA Qual PCR NEGATIVE (Negative); SARS COV2 PCR INHOUSE POSITIVE (Negative)
--- OUTSIDE RECORDS SUMMARY | 2023-05-04 02:13 | XMS_ITS | Continuity of Care Document ---
Author Name Unknown Organization [facility] Sonya ashleyEmbrace Pet Insuranceaqsim [facility] Address [address], [address] [place] [address]- Care Team Providers Care Admin Dir Name Role Phone Not on Staff, PCP Primary Care Physician Unavail able [place] [facility] [place] Date(s): 02/06/23 - [facility] [address] [place] [address]- Allergies, Adverse Reactions, Alerts Substance Reaction Severity Status amoxicillin Maculopapular rash Active aspirin Active penicillin Active Nuts diff breathing Active Immunizations Given and Recorded Vaccine Date Status Refusal Reason tetanus/diphtheria/pertussis, acel(Tdap) 1 10/28/19 Given 1Result Comment: [facility]#[id number] Medications Apri 0.15 mg-0.03 mg oral tablet 1 tablet, By Mouth, Daily, take same time daily, # 84 tablet, 3 Refills, Maintenance, 02/01/23 12:09:00 EDT, Tablet, [id number], Partial fill upon patient request if the prescription is for aschedule II opioid drug., 1 tablet By Mouth Daily,I... Start Date: 02/01/23 Status: Ordered hydrOXYzine hydrochloride 25 mg oral tablet 1 [...] Maintenance, 03/26/22 5:49:00 EDT, EC Tablet, [id number], Partial fill upon patient request if the prescription is for a schedule IIopioid drug., 165, cm, 03/26/22 3:57:00 EDT, Height... Start Date: 03/26/22 Status: Ordered Provera 10 mg oral tablet 10 mg, 1, tablet, By Mouth, Daily, call office if no withdrawal bleed, # 10 tablet, Refills 0, Tot.Refills 0, Maintenance, 02/01/23 12:09:00 EDT, Route to Pharmacy Electronically, [facility]/pharm[facility] #[id number], Partial fill upon patient request if the prescript... Start Date: 02/01/23 Stop Date: 02/11/23 Status: Ordered Problem List Condition Confirmation Course Effective Dates Status H ealth Status Informant History of conization of cervix Confirmed Active Hyperthyroidism Confirmed Active Obese class I Confirmed Active Thyroid function test abnormal Confirmed Active Uterine scar from previous delivery Confirmed Active Social History Social History Type Response Smoking Status Former smoker, quit more than 30 days ago; Other: quit 2018; entered on: 02/01/23 Sex Patient Care team information Care Team Personnel Name: Not on Staff, PCP Position: [facility] Physician (General Medicine) Member Role: PCP Care Team Related Persons Name: OSEAS MORENO Address: [address] [place] [address] Name: NOÉ ALBERT Address: [employer] Address: home [address] [facility] [place] [address] Name: KRISTIN ALBERT Address: home [address] [place] [address] Name: FRANCESCO VILLARREAL Address: home [address] [place] [address]
--- OUTSIDE RECORDS SUMMARY | 2023-05-04 02:13 | XMS_ITS | Continuity of Care Document ---
Author Name Unknown Organization [facility] Sonya ashleyConektaqasim [facility] Address [address], [address] [place] [address]- Care Team Providers Care Core Inspector Name Role Phone Not on Staff, PCP Primary Care Physician Unavail able Encounter [facility] [place] [place] Date(s): 02/18/23 - 03/20/23 [facility] PauloConektas [facility] [address] [place] [address]- Allergies, Adverse Reactions, Alerts Substance Reaction Severity Status amoxicillin Maculopapular rash Active penicillin Active aspirin Active Nuts diff breathing Active Immunizations Given and Recorded Vaccine Date Status Refusal Reason tetanus/diphtheria/pertussis, acel(Tdap) 1 10/28/19 Given 1Result Comment: [facility]#[id number] Medications Apri 0.15 mg-0.03 mg oral tablet [...] 02/01/23 12:09:00 EDT, Route to Pharmacy Electronically, [facility]/pharm[facility] #[id number], Partial fill upon patient request if the [...] Personnel Name: Not on Staff, PCP Position: [facility] Physician (General Medicine) Member Role: PCP Care Team Related Persons Name: OSEAS MORENO Address: home [address] [place] [address] Name: NOÉ ALBERT Address: [employer] Address: home [address] [facility] [place] [address] Name: KRISTIN ALBERT Address: home [address] [place] [address] Name: FRANCESCO VILLARREAL Address: home [address] [place] [address]
--- OUTSIDE RECORDS SUMMARY | 2023-05-04 02:13 | XMS_ITS | Continuity of Care Document ---
Author Name Unknown Organization [facility] Address [address], [address] [place] [address]- Care Team Providers Care Tap And Die Maker Technician Name Role Phone Not on Staff, PCP Primary Care Physician Unavail able Encounter [facility] [place] Date(s): 02/18/23 - 03/20/23 [facility] [address], [address] [place] [address]- Allergies, Adverse Reactions, Alerts Substance Reaction Severity Status amoxicillin Maculopapular rash Active penicillin Active aspirin Active Nuts diff breathing Active Immunizations Given and Recorded Vaccine Date Status Refusal Reason tetanus/diphtheria/pertussis, acel(Tdap) 1 10/28/19 Given 1Result Comment: [facility]#[id number] Medications Apri 0.15 mg-0.03 mg oral tablet [...] 02/01/23 12:09:00 EDT, Route to Pharmacy Electronically, [facility]/pharmacy #[id number], Partial fill upon patient request if the [...] Personnel Name: Not on Staff, PCP Position: [facility] Physician (General Medicine) Member Role: PCP Care Team Related Persons Name: OSEAS MORENO Address: home [address] [place] [address] Name: NOÉ ALBERT Address: [employer] Address: home [address] [facility] [place] [address] Name: KRISTIN ALBERT Address: home [address] [place] [address] Name: FRANCESCO VILLARREAL Address: home [address] [place] [address]
--- NOTE | 2023-05-04 03:29 | ED_ITS ---
HPI - Fever General Chief Complaint: Fever Stated Complaint: Fever Time Seen by Provider: 05/04/23 03:20 Source: patient Mode of arrival: ambulatory Limitations: no limitations History of Present Illness HPI Narrative: Patient comes to the emergency room complaining of 2 weeks of generalized malaise, fever, coughing, rib pain bilaterally. Patient states that yesterday she took a COVID test it was negative. However, patient states that over last couple of days, she has been gradually feeling worse. Patient also complaining of nausea, no vomiting or diarrhea. Patient states that she has not taking any medication including Tylenol or ibuprofen due to the nausea. Related Data Previous Rx's Medication Instructions Recorded levofloxacin 500 mg tablet 500 mg PO DAILY #10 tabs 02/27/23 ketorolac 10 mg tablet 10 mg PO TID PRN pain #10 tabs 05/04/23 ondansetron 4 mg disintegrating 4 mg PO Q6H PRN nausea and 05/04/23 tablet vomiting #14 tabs Allergies Allergy/AdvReac Type Severity Reaction Status Date / Time amoxicillin Allergy Rash Verified 02/27/23 04:20 aspirin Allergy Rash Verified 02/27/23 04:20 Iodinated Contrast Media Allergy Swelling Verified 02/27/23 04:20 [IV Contrast Dye] oxycodone Allergy Rash Verified 02/27/23 04:20 Penicillins Allergy Rash Verified 02/27/23 04:20 Review of Systems 2 Review of Systems: Constitutional : No Weight loss, complaining of subjective fever and chills, fatigue and generalized malaise ENT/Mouth : No Hearing loss, No Ear Pain, No Nasal Congestion, No Sinus Pain, No Hoarseness, No sore throat, No Rhinorrhea, No Swallowing Difficulty Eyes: No Eye Pain, No Swelling, No Redness, No Foreign Body, No Discharge, No Vision Changes Cardiovascular : No Chest Pain, No SOB, No Dyspnea on Exertion, No Orthopnea, No Edema, No Palpitations Respiratory : Complaining of cough , No Sputum, No Wheezing, No Smoke Exposure, No Dyspnea Gastrointestinal : Complaining of Nausea, No Vomiting, No Diarrhea, No Constipation, No abdominal Pain, No Hematochezia, No Melena Genitourinary : no irregular bleeding, No Dysuria, No Urinary Frequency, No Hematuria, No Urinary Incontinence, No Urgency, No Flank Pain, No Urinary Flow Changes, No Hesitancy Musculoskeletal : No joint pain, No Myalgias, No Joint Swelling Skin : No Skin Lesions, No rash Neuro : No Weakness, No Numbness, No Paresthesias, No Loss of Consciousness, No Dizziness, No Headache Psych : No Anxiety/Panic, No Depression, No SI/HI/AH/VH, No Social Issues, Heme/Lymph: No Bruising, No Bleeding,No Lymphadenopathy Endocrine : No Polyuria, No Polydipsia, No Temperature Intolerance [facility] Social History Social History Substance Use Type: Marijuana Advance Directives: No Advance Directives Information Provided: Yes Physical Exam 2 Vital Signs: Vital Signs: Last Vital Signs Temp 99.4 F 05/04/23 00:40 Pulse 115 H 05/04/23 00:40 Resp 20 05/04/23 00:40 BP 111/72 05/04/23 00:40 Pulse Ox 98 05/04/23 00:40 O2 Del Method Room Air 05/04/23 00:40 BMI result Body Mass Index 26.7 Const: Other: Appearance: Alert. Oriented X3. No acute distress. Eyes: Pupils equal, round and reactive to light. ENT: Pharynx normal. Neck: Normal inspection. Neck supple. No lymph nodes noted. No crepitus CVS: Normal heart rate and rhythm. Pulses normal. Normal S1 and S2 Respiratory: No respiratory distress. Breath sounds normal. No Wheezing. No rales Abdomen: Soft and nontender. No rigidity. No distention. Skin: Skin warm and dry. Normal skin color. Normal skin turgor. Extremities: No lower extremity edema. No Lacerations. No Rash Neuro: Oriented X 3. No motor deficit. No sensory deficit. Moving all extremities. No slurred speech. CN 2 through 12 grossly intact Psych: calm, cooperative, normal affect Medical Decision Making Medical Decision Making [facility] Narrative: -my interpretation of chest x-ray: No infiltrate -my interpretation of labs: Patient tested positive for COVID-19. -for symptomatic relief, patient was given IM Toradol, Zofran, patient requested Benadryl so she can go to sleep. Her partner will be driving home. -I discussed with the patient that she is outside of the window of treatment for antiviral treatment Differential Diagnosis Differential Diagnoses: The differential diagnosis associated with the presentation includes (With, influenza, viral illness) Lab Data [facility] Lab Attestation statement: I reviewed the patient's lab results. 05/04/23 00:52 05/04/23 00:51 Labs: Lab Results 05/04/23 05/04/23 Range/Units 00:51 00:52 WBC 7.3 (4.8-10.8) X10*3/uL RBC 4.46 (4.20-5.50) X10*6/uL Hgb 13.4 (12.0-16.0) g/dl Hct 39.6 (37.0-47.0) % MCV 88.8 (80.0-98.0) fL MCH 30.0 (27.0-33.0) pg MCHC 33.8 (31.0-35.0) g/dl RDW 12.2 (11.0-16.0) % Plt Count 226 (160-400) X10*3/uL MPV 10.2 (9.4-12.3) fL Absolute Nucleated RBC 0.000 (0.0-0.012) X10*3/uL Nucleated RBC % (auto) 0.0 (0.0-0.2) /100WBC Sodium 141 (135-145) mmol/L Potassium 3.6 (3.3-5.1) mmol/L Chloride 106 (96-108) mmol/L Carbon Dioxide 25 (22-29) mmol/L Anion Gap 14 (12-20) BUN 13 (9-16) mg/dL Creatinine 0.77 (0.5-1.4) mg/dL Estim Creat Clear Calc 93.6 Estimated GFR > 60 Random Glucose 93 (60-115) mg/dL Calcium 9.3 (8.4-10.2) mg/dL Total Bilirubin 0.3 (0.0-1.0) mg/dL AST 13 (5-31) U/L ALT 9 (0-31) U/L Alkaline Phosphatase 77 (39-117) U/L Total Protein 7.6 (6.5-8.0) g/dL Albumin 4.5 (3.5-5.0) g/dL Influenza Type A (PCR) NEGATIVE (Negative) Influenza Type B (PCR) NEGATIVE (Negative) RSV RNA Qual (PCR) NEGATIVE (Negative) SARS-CoV-2 RNA (RT-PCR) POSITIVE A (Negative) Independent Interpretation I performed an independent interpretation of an: Plain X-Ray Radiology Impression Discussion of test interpretation with radiology: I have reviewed the radiologist's reading. Radiologist Impression: FINDINGS: No significant abnormality is noted involving the heart, lungs, mediastinum, bony thorax or soft tissues. XR/XR chest 2V IMPRESSION: Unremarkable examination. Discharge Plan Discharge Clinical Impression: COVID-19 Patient Disposition: Home, Self-Care Instructions: COVID-19 (Coronavirus Disease 2019) (ED) Additional Instructions: Please follow-up with your primary care physician tomorrow. If you have any worsening or new symptoms, please return to the emergency room or call 911 Prescriptions: New ondansetron 4 mg tablet,disintegrating 4 mg PO Q6H PRN (Reason: nausea and vomiting) Qty: 14 0RF ketorolac 10 mg tablet 10 mg PO TID PRN (Reason: pain) Qty: 10 0RF Rx Instructions: Do not use this medication with NSAIDs, only Tylenol if needed No Action levofloxacin 500 mg tablet 500 mg PO DAILY Qty: 10 0RF
[2023-05-04] MEDS: Ondansetron ODT 4 MG TAB.RAPDIS TRANSLINGU (03:36)
[2023-05-04] MEDS: diphenhydrAMINE HCL 25 MG CAPSULE 50 MG PO (03:37)
[2023-05-04] MEDS: Ketorolac Tromethamine 60 MG/2 ML VIAL IM (03:38)
== END 2023-05-04 03:46 | disposition home or self-care (01) ==
PROVIDERS: Emergency Provider Emergency Medicine
DX: U07.1 COVID-19 (principal); R50.9 Fever, unspecified; R05.9 Cough, unspecified; Z20.822 Contact with and (suspected) exposure to COVID-19; Z20.828 Contact with and (suspected) exposure to other viral communicable diseases
CPT/HCPCS: 0241U; 71046; 80053; 85027; 96372; 99284; J1885

== ENCOUNTER 2023-06-18 16:19 | Emergency (ER) | payer MEDICAID, SELFPAY ==
[2023-06-18 17:17] VITALS: BP 123/86; PULSE 87; RESP 18; TEMP 36.2; O2SAT 100
[2023-06-18 18:33] LABS: IDNOW Serial# 58CA691E; Monotest Negative (Negative); Strep A Nucleic Acid Negative (Negative)
[2023-06-18 18:36] LABS: COVID-19 Test Negative (Negative); IDNOW Serial# 6674DD1D
[2023-06-18 18:38] LABS: IDNOW Serial# 9DB6401D; Influenza A Negative (Negative); Influenza B2 Negative (Negative)
--- NOTE | 2023-06-18 19:31 | ED.GENADULT ---
HPI - General Adult General Chief complaint: General Medical Stated complaint: Throat pain Time Seen by Provider: 06/18/23 19:27 Source: patient Mode of arrival: ambulatory Limitations: no limitations History of Present Illness HPI narrative: Patient is a 32 year old assigned female at with no reported medical history presenting to the emergency department today with a sore throat. Patient states that over the last 3 days she has had a sore throat. Patient states that her children have strep throat. Patient denies any dizziness, lightheadedness, abdominal pain, nausea, vomiting, fever, chills, blurry vision, double vision, loss of vision, chest pain, difficulty breathing, shortness of breath, back pain, night sweats, pain with urination, increased urinary frequency, increased urinary urgency, blood in her urine or stool, syncope or a near syncopal episode, recent trauma or falls, bowel incontinence, bladder incontinence, bowel retention, bladder retention, or any other complaints at this time. Onset (ago): day(s) (3) Severity: mild Severity scale (1-10): 2 Quality: aching and dull Pain Consistency: constant Relieving factors: none Exacerbating factors: none Associated symptoms: denies other symptoms Treatments prior to arrival: none Related Data Previous Rx's Medication Instructions Recorded levofloxacin 500 mg tablet 500 mg PO DAILY #10 tabs 02/27/23 ketorolac 10 mg tablet 10 mg PO TID PRN pain #10 tabs 05/04/23 ondansetron 4 mg disintegrating 4 mg PO Q6H PRN nausea and 05/04/23 tablet vomiting #14 tabs azithromycin 500 mg tablet 500 mg PO BID 5 days #10 tabs 06/18/23 Allergies Allergy/AdvReac Type Severity Reaction Status Date / Time amoxicillin Allergy Rash Verified 02/27/23 04:20 aspirin Allergy Rash Verified 02/27/23 04:20 Iodinated Contrast Media Allergy Swelling Verified 02/27/23 04:20 [IV Contrast Dye] oxycodone Allergy Rash Verified 02/27/23 04:20 Penicillins Allergy Rash Verified 02/27/23 04:20 Review of Systems Constitutional: Constitutional: Reports no additional constitutional complaints, Denies chills, Denies fever(s) and Denies night sweats Eyes: Eyes: Reports no additional eye complaints, Denies blurry vision, Denies change in vision, Denies diplopia, Denies eye discharge, Denies loss of vision and Denies eye pain ENT: Denies dizziness and Reports sore throat Cardiovascular: Cardiovascular: Reports no additional cardiovascular complaints, Denies chest pain, Denies lightheadedness, Denies Loss of Consciousness and Denies dyspnea Respiratory: Respiratory: Reports no additional respiratory complaints and Denies dyspnea Gastrointestinal: Gastrointestinal: Reports no additional gastrointestinal complaints, Denies abdominal pain, Denies melena, Denies hematochezia, Denies change in bowel habits and Denies change in stool character Genitourinary: Genitourinary: Denies hematuria, Denies urinary frequency, Denies dysuria, Denies urinary incontinence, Denies urinary hesitancy and Denies urinary urgency Musculoskeletal: Musculoskeletal: Reports no additional musculoskeletal complaints, Denies numbness and Denies tingling Neurologic: Denies dizziness, Denies loss of vision, Denies numbness and Denies tingling Psychiatric: Psychiatric: Reports no additional psychiatric complaints Endocrine: Endocrine: Reports no additional endocrine complaints Hematologic/Lymphatic: Hematologic/Lymphatic: Reports no additional hematologic/lymphatic complaints Allergic/Immunologic: Allergic/Immunologic: Reports no additional allergic/immunologic complaints PMFSH Past Medical History Attestation statement: The following information was validated with the patient. Source: old records reviewed and nursing notes reviewed Social History Social History Substance Use Type: Marijuana Advance Directives: No Advance Directives Information Provided: Yes Physical Exam ED Vital Signs: Vital Signs - 24 hr 06/18/23 17:17 06/18/23 19:34 Temperature 97.1 F 97.8 F Pulse Rate 87 78 Respiratory Rate 18 16 Blood Pressure 123/86 119/75 Pulse Oximetry 100 100 Oxygen Delivery Method Room Air Room Air BMI result Body Mass Index 30.0 Const General: cooperative, no acute distress, alert and awake Nutritional Appearance: well nourished Orientation/consciousness: patient oriented x3 Limitations: no limitations HENMT Head: Yes normal to inspection and Yes atraumatic Ears: hearing grossly normal bilaterally and external ears normal General nose exam: Normal external nose present, no nasal discharge noted and no epistaxis Face and sinus: Yes normal facial exam, No abrasion and No laceration Mouth: Normal oral and palatal mucosa present, no drooling and no muffled voice Throat: Yes abnormal tonsil (bilateral erythema and exudates) Eyes General: appearance normal, both eyes and all related structures Periorbital: periorbital findings normal Eyelids: Yes eyelids normal Conjunctivae: conjunctivae normal Pupils: Equal, round and reactive pupils present EOM: EOMs intact bilaterally Neck Neck: Yes normal visual inspection, Yes full ROM and Yes no lymphadenopathy Chest Chest palpation & inspection: normal inspection of the chest Resp Effort & Inspection: normal respiratory effort and able to speak in complete sentences GI Inspection: Yes normal to inspection Neuro General: patient oriented x3 and moves all extremities Cranial nerves: Yes Equal, round and reactive pupils present Cognition (Neuro): normal cognition Motor exam (neuro): 5/5 motor strength present throughout Sensory Exam: Normal double simultaneous stimulation for sensation Coordination: [id number] test normal Extrem General: Yes normal to inspection, Yes full ROM and Yes capillary refill normal Psych Appearance: grossly normal Mental Status: mental status grossly normal Affect: normal affect Attitude: cooperative Thought process: Normal thought process present Thought content: Normal thought content present Insight: Good insight present (Psych) Medications Administered Discontinued Medications Generic Name Dose Route Start Last Admin Trade Name Samreen PRN Reason Stop Dose Admin Dexamethasone Sodium Phosphate 10 mg 06/18/23 19:43 06/18/23 19:53 Dexamethasone Sod Phosphate 10 Mg/Ml Vial PO 06/18/23 19:44 10 mg ONCE ONE Administration Medical Decision Making Medical Decision Making [facility] Narrative: Patient is a 32 year old assigned female at with no reported medical history presenting to the emergency department today with a sore throat. Patient's physical exam was as noted in the physical exam portion of this note. Patient's strep, COVID-19, and influenza tests were all negative. However, given the patient's recent contacts with strep positive individuals and her presentation, will treat. I explained my physical exam findings as well as all test results to the patient. I answered all questions asked by the patient. I stressed the importance of the patient taking her medication as prescribed. I stressed the importance of the patient following up with her primary care provider. I stressed the importance of the patient returning to the emergency department immediately if her symptoms were to worsen or if she were to develop any dizziness, shortness of breath, difficulty breathing, chest pain, blurry vision, loss of vision, nausea, vomiting, abdominal pain, fever, chills, back pain, or any other complaints. Patient verbalized agreement and understanding with this treatment plan and discharge. Differential Diagnosis Differential Diagnoses: The differential diagnosis associated with the presentation includes Strep pharyngitis Pharyngitis Sore throat COVID-19 Influenza Admission/Observation Consideration of admission/observation: Escalation of care including admission/observation considered Patient would have been admitted to the hospital had her work up had any findings where hospital admission was appropriate and her clinical presentation warranted hospital admission. Lab Data MDM Lab Attestation statement: I reviewed the patient's lab results. My interpretation of these studies and their corresponding values is that they are grossly normal. Labs: Lab Results 06/18/23 Range/Units 18:14 COVID-19 (BOLIVAR) Negative (Negative) COVID-19 Clin Com See Note Monoscreen Negative (Negative) Influenza Type A (INESSA) Negative (Negative) Influenza Type B (INESSA) Negative (Negative) Influenza A & B Note See Note S. pyogenes GrpA INESSA Negative (Negative) Prescription Management I considered prescription management with: Antibiotic (patient prescribed an antibiotic for pharyngitis.) Discharge Plan Discharge Clinical Impression: Pharyngitis Patient Disposition: Home, Self-Care Instructions: Pharyngitis (ED) Additional Instructions: Follow up with your primary care provider. Return to the emergency department immediately if your symptoms worsen or if you develop any dizziness, shortness of breath, difficulty breathing, chest pain, blurry vision, loss of vision, nausea, vomiting, abdominal pain, fever, chills, back pain, or any other complaints. Prescriptions: New azithromycin 500 mg tablet 500 mg PO BID 5 Days Qty: 10 0RF No Action levofloxacin 500 mg tablet 500 mg PO DAILY Qty: 10 0RF ondansetron 4 mg tablet,disintegrating 4 mg PO Q6H PRN (Reason: nausea and vomiting) Qty: 14 0RF ketorolac 10 mg tablet 10 mg PO TID PRN (Reason: pain) Qty: 10 0RF Rx Instructions: Do not use this medication with NSAIDs, only Tylenol if needed Referrals: [facility] [Provider Group] (Call to establish and follow up with a primary care provider. If you already have a primary care provider, please follow up with them.) [facility] [Provider Group] (Call to establish and follow up with a primary care provider. If you already have a primary care provider, please follow up with them.) [facility] [Provider Group] (Call to establish and follow up with a primary care provider. If you already have a primary care provider, please follow up with them.) Stand Alone Forms: Work/School Release Print Language: Romanian
[2023-06-18 19:34] VITALS: BP 119/75; PULSE 78; RESP 16; TEMP 36.6; O2SAT 100
[2023-06-18] MEDS: dexAMETHasone sod phosphate 10 MG/ML VIAL PO (19:53)
== END 2023-06-18 20:14 | disposition home or self-care (01) ==
PROVIDERS: Physician Assistant; Emergency Provider Emergency Medicine
DX: J02.9 Acute pharyngitis, unspecified (principal); Z11.52 Encounter for screening for COVID-19
CPT/HCPCS: 36415; 86308; 87502; 87635; 87651; 99283; J1100

== ENCOUNTER 2024-04-23 08:46 | Emergency (ER) | payer MEDICAID, SELFPAY ==
[2024-04-23 08:47] VITALS: BP 132/87; PULSE 97; RESP 18; TEMP 36.8; O2SAT 100; BMI 31.5
--- OUTSIDE RECORDS SUMMARY | 2024-04-23 08:59 | XMS_ITS | Continuity of Care Document ---
Author Organization [facility] Address [address] [place] [address]- Care Team Providers Care Broom Handle Dipper Name Role Phone Not on Staff, PCP Primary Care Physician Unavail able Encounter [facility] Date(s): 07/08/23 - 07/08/[address] [address]- Encounter Diagnosis Otalgia(Final) - 07/08/23 Discharge Disposition: A-D/C Home Attending Physician: Jarrod Mcmullen MD Admitting Physician: Jarrod Mcmullen MD Referring Physician: Not on Staff, Referring MD Allergies, Adverse Reactions, Alerts Substance Reaction Severity Status amoxicillin Maculopapular rash Active penicillin Active aspirin Active Nuts diff breathing Active Immunizations Given and Recorded Vaccine Date Status Refusal Reason tetanus/diphtheria/pertussis, acel(Tdap) 1 10/28/19 Given 1Result Comment: [facility]#[id number] Medications Apri 0.15 mg-0.03 mg oral tablet 1 tablet, By Mouth, Daily, take same time daily, # 84 tablet, 3 Refills, Maintenance, 02/01/23 12:09:00 EDT, Tablet, [facility]/pharmacy #[id number], Partial fill upon patient request if the [...] Refills, Maintenance, 03/26/22 5:49:00 EDT, EC Tablet, [facility]/pharmacy #[id number], Partial fill upon patient request if the prescription is for a schedule IIopioid drug., 165, cm, 03/26/22 3:57:00 EDT, Height... Start Date: 03/26/22 Status: Ordered Provera 10 mg oral tablet 10 mg, 1, tablet, By Mouth, Daily, call office if no withdrawal bleed, # 10 tablet, Refills 0, Tot.Refills 0, Maintenance, 02/01/23 12:09:00 EDT, Route to Pharmacy Electronically, [facility]/pharmacy #[id number], Partial fill upon patient request if the prescript... Start Date: 02/01/23 Stop Date: 02/11/23 Status: Ordered Problem List Condition Confirmation Course Effective Dates Status H ealth Status Informant History of conization of cervix Confirmed Active Hyperthyroidism Confirmed Active Obese class I Confirmed Active Thyroid function test abnormal Confirmed Active Uterine scar from previous delivery Confirmed Active Results Orders for Microbiology Reports Name Date Group A Strep Screen and Culture 07/08/23 Microbiology Reports TEST:Group A Strep Screen and Culture STATUS:Unauthenticated BODY SITE: SOURCE:THROAT COLLECTED DATE/TIME:07/08/23 8:05 AM Group A Strep Screen and Culture SPECIMEN DESCRIPTION : THROAT SWAB SPECIAL REQUESTS : NONE DIRECT EXAM : RAPID GROUP A RESULT IS NEGATIVE, REFER TO CULTURE RESULT. REPORT STATUS : PRELIMINARY REPORT Vital Signs Most recent to oldest [Reference Range]: 1 Height 158 cm (07/08/23 8:58 AM) Weight 78.1 kg (07/08/23 8:58 AM) Oxygen Saturation [94-100 %] 100 % (07/08/23 8:58 AM) Pulse Rate [55-90 bpm] 92 bpm *H* (07/08/23 8:58 AM) Blood Pressure [90-138/55-84 mm Hg] 126/ 92mm Hg (07/08/23 8:58 AM) Respiratory Rate [16-30 br/min] 18 br/mi n (07/08/23 8:58 AM) Temperature [96.8-100.4 DegF] 97.1 DegF (07/08/23 8:58 AM) Mode of Delivery (Oxygen) Room air (07/08/23 8:58 AM) Temperature Route Temporal (07/08/23 8:58 AM) Dry Weight 78.1 kg (07/08/23 8:58 AM) Weight Obtained Via Standing scale (07/08/23 8:58 AM) Dry Weight Obtained Via Standing scale (07/08/23 8:58 AM) Social History Social History Type Response Smoking Status Former smoker, quit more than 30 days ago; Other: quit 2019; entered on: 02/01/23 Sex Note * Kandy Pablo: PERFORM Event Display: Patient Education Leaflets Authored Date: [id number] Earache, No Infection (Adult) ?? [id number] Earache, No Infection (Adult) Earaches can happen without an infection. They can occur when air and fluid build up behind the eardrum. They may cause a feeling of fullness and discomfort. They may also impair hearing. This is called otitis media with effusion (OME) or serous otitis media. It means there is fluid in the middle ea r. It is not the same as acute otitis media, which is often from an infection. OME can happen when you have a cold if congestion blocks the passage that drains the middle ear. This passage is called the eustachian tube. OME may also occur with nasal allergies or after a bacterial infection in the middle ear. Other causes are: ??? Trauma ??? Bacterial infection of the mastoid bone (mastoiditis) ??? Tumor ??? Changes in pressure, such as from flying or scuba diving The pain or discomfort may come and go. You may hear clicking or popping sounds when you chew or swallow. You may feel that your balance is off. Or you may hear ringing in the ear. It often takes from several weeks up to 3 months for the fluid to clear on its own. Oral pain relievers and ear drops help if there is pain. Decongestants and antihistamines sometimes help. Antibiotics don't help since there is no infection. Your healthcare provider may give you a nasal spray to help reduce swelling in the nose and eustachian tube. This can allow the ear to drain. If your OME doesn't get better after 3 months, surgery may be used to drain the fluid. A small tubemay also be put in the eardrum to help with drainage. Because the middle ear fluid can become infected, watch for signs of an infection. These may develop later. They may include increased ear pain, fever, or drainage from the ear. Home care These home-care tips will help you take care of yourself: ??? You may use [id number]-[id number] medicineas directed by your healthcare provider to control pain, unless medicine was prescribed. Talk with your provider before using any medicines if you have chronic liver or kidney disease or ever had a stomach ulcer or GI bleeding.. ??? Ask your provider if you may use hvxh-hdp-okevesd decongestants such as phenylephrine or pseudoephedrine. Keep in mind they are not always helpful. ??? Talk with yourprovider about using nasal spray decongestants. Don't use them for more than 3 days, or as directedby your provider. Longer use can make congestion worse. Prescription nasal sprays from your provider don't often have such restrictions. ??? Antihistamines may help if you are also having allergy symptoms. ?? Follow-up care Follow up with your provider as advised. ?? When to get medical advice Call your healthcare provider right away if any of the following occur: ??? Ear pain that gets worse or that does not start to get better? Fever of 100.4??F (38??C) or higher, or as directed by your healthcare provider ??? Fluid or blood draining from the ear ??? Headache or sinus pain ??? Changes in hearing ?? Call 911 Call 911 if any of the following occur: ??? Stiff neck ??? Unusual drowsiness or confusion ??? Shortness of breath ?? Last Reviewed Date: 2022 ?? [id number] [employer]. All rights reserved. This information is not intended as a substitute for professional medical care. Always follow your healthcare professional's instructions. ?? Patient Care team information Care Team Personnel Name: Not on Staff, PCP Position: S Physician (General Medicine) Member Role: PCP Care Team Related Persons Name: OSEAS MORENO Address: [address] [address] Name: NOÉ ALBERT Address: [employer] Address: home [address] [place] [address] Name: KRISTIN ALBERT Address: home [address] [place] [id number] Name: FRANCESCO VILLARREAL Address: home [address] [place] [address]
--- OUTSIDE RECORDS SUMMARY | 2024-04-23 08:59 | XMS_ITS | Continuity of Care Document ---
Author Organization [facility] Sonya barrera [facility] Address [address] [place] [address]- Care Team Providers Care Armature Inspector Name Role Phone Not on Staff, PCP Primary Care Physician Unavail able [place] [facility] Date(s): 11/25/23 - 12/25/23 [facility] Sonya Lancasters [facility] [address] [place] [address]- Allergies, Adverse Reactions, Alerts Substance Reaction Severity Status amoxicillin Maculopapular rash Active aspirin Active penicillin Active Nuts diff breathing Active Immunizations Given and Recorded Vaccine Date Status Refusal Reason tetanus/diphtheria/pertussis, acel(Tdap) 1 10/28/19 Given 1Result Comment: [facility]#[id number] Medications Apri 0.15 mg-0.03 mg oral tablet [...] 02/01/23 12:09:00 EDT, Route to Pharmacy Electronically, [facility]/pharmacy #[id number], Partial fill upon patient request if the [...] Personnel Name: Not on Staff, PCP Position: [facility] Physician (General Medicine) Member Role: PCP Care Team Related Persons Name: OSEAS MORENO Address: home [address] [place] [address] Name: NOÉ ALBERT Address: [employer] Address: home [address] [facility] [place] [address] Name: KRISTIN ALBERT Address: home [address] [place] [address] Name: FRANCESCO VILLARREAL Address: home [address] [place] [address]
--- NOTE | 2024-04-23 09:02 | ED.DENTAL ---
HPI - Dental/Oral General Chief complaint: Dental/Oral Stated complaint: Dental pain Time Seen by Provider: 04/23/24 09:00 Source: patient Mode of arrival: ambulatory Limitations: no limitations History of Present Illness ED Provider: Anabel Wood NP HPI Narrative: Patient is a 33-year-old female who presents emergency department for evaluation. She reports 4 days ago at a dental office in [place] she had a dental procedure done, appears to have had extraction to a left lower molar. She states that she was not on antibiotics prior to this and they did not prescribe her any antibiotics. She has been experiencing increasing swelling, pain, and a foul copper like taste in her mouth. She denies any active bleeding. She was given a prescription for oxycodone which she has not elected to take as it upsets her stomach. Denies associated fevers, chills, headache, neck pain, neck stiffness, ear pain, sore throat, inability to open the mouth, pus-like drainage, bleeding from the gums. Related Data Previous Rx's ?Medication ?Instructions ?Recorded levofloxacin 500 mg tablet 500 mg PO DAILY #10 tabs 02/27/23 ketorolac 10 mg tablet 10 mg PO TID PRN pain #10 tabs 05/04/23 ondansetron 4 mg disintegrating 4 mg PO Q6H PRN nausea and 05/04/23 tablet vomiting #14 tabs azithromycin 500 mg tablet 500 mg PO BID 5 days #10 tabs 06/18/23 chlorhexidine gluconate 0.12 % 15 ml buccal BID 7 days #1,893 mL 04/23/24 mouthwash clindamycin HCl 300 mg capsule 600 mg (2 x 300 mg) PO BID 7 days 04/23/24 #28 caps Allergies Allergy/AdvReac Type Severity Reaction Status Date / Time amoxicillin Allergy Rash Verified 04/23/24 08:48 aspirin Allergy Rash Verified 04/23/24 08:48 Iodinated Contrast Media Allergy Swelling Verified 04/23/24 08:48 [IV Contrast Dye] oxycodone Allergy Rash Verified 04/23/24 08:48 Penicillins Allergy Rash Verified 04/23/24 08:48 Review of Systems Review of Systems: Yes all other systems are reviewed and are negative PMFSH Past Medical History Attestation statement: The following information was validated with the patient. Source: old records reviewed Social History Social History Substance Use Type: Marijuana Advance Directives: No Advance Directives Information Provided: No Do you have a plan to hurt others: No Plan Physical Exam Vital Signs: Vital Signs: Last Vital Signs Temp 98.2 F 04/23/24 08:47 Pulse 97 04/23/24 08:47 Resp 18 04/23/24 08:47 BP 132/87 04/23/24 08:47 Pulse Ox 100 04/23/24 08:47 O2 Del Method Room Air 04/23/24 08:47 BMI result Body Mass Index 31.5 Appearance: Alert. Oriented X3. No acute distress. Head: Normal external exam. Normocephalic. Atraumatic. Eyes: PERRLA. EOMI. Conjunctiva and sclera normal. Eyelids normal. ENT: EAC normal. TM's Normal. Pharynx normal. Uvula midline. Moist mucous membranes.? ?No trismus noted.? No drooling noted.? No muffled voice noted. Dentition:? Apparent extraction to left lower molar with surrounding erythema and swelling of the gingival tissue, no areas of fluctuance, no active bleeding, normal-appearing socket. No salivary duct obstruction noted. Neck: Normal inspection. Neck supple. FROM. No adenopathy. No meningeal signs. No neck mass noted.? CVS: Normal heart rate and rhythm. Heart sound normal. No murmurs noted. Pulses normal throughout. Respiratory: No respiratory distress. Lung sounds clear to the apices bilaterally.. Chest nontender. ?No accessory muscle usage noted or decreased air movement noted. Skin: Skin warm and dry.? Normal skin color.? Normal skin turgor. No rashes/lesions/lacerations noted. Extremities: Extremities exhibit normal range of motion.? Extremities nontender. Neuro: Oriented X 3.? No motor deficit.? No sensory deficit.? Reflexes normal. 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 Does not appear consistent with periapical or periodontal abscess, no fluctuance or purulent drainage noted. No trismus, no associated sore throat, no dysphagia, no odynophagia, no hoarseness, no stridor, no dyspnea, low suspicion for paripharyngeal space infection. Uvula is midline, no edema to the soft palate, unlikely peritonsillar abscess. No induration below the angle of the mandible on the neck, nontoxic in appearance, unlikely parapharyngeal abscess. Posterior pharyngeal anatomy is without any evidence of distortion, unlikely retropharyngeal abscess. On examination no tenderness of the floor of the mouth, able to tolerate secretions, no drooling, no nuchal rigidity, no swelling to the neck, unlikely Kamlesh's angina. Prescription for antibiotic was sent to pharmacy, advised continued use of anti-inflammatory, oxycodone as previously prescribed by her dental provider as needed for severe pain and outpatient follow-up. Discussed worrisome signs and symptoms that would warrant re-evaluation emergency department. All questions answered. Stable for discharge. Differential Diagnosis Differential Diagnoses: The differential diagnosis associated with the presentation includes (See narrative above) Independent Historian Clinical information obtained from an independent historian. History obtained from or confirmed by: Spouse External Record Review External record reviewed: Outpatient record Prescription Management I considered prescription management with: Pain Medication and Antibiotic Discharge Plan Discharge Clinical Impression: Toothache Patient Disposition: Home, Self-Care Instructions: Toothache (ED) Additional Instructions: You can take ibuprofen 200 mg, 3 tablets (600mg) every 6-8 hours as needed for pain, in addition to Tylenol 500 mg, 2 tablets (1,000mg) every 4-6 hours as needed for pain, but not to exceed 3 doses daily (3,000mg).? For severe pain that is intolerable you may use the oxycodone as prescribed by your dental provider. As discussed it is very important that you contact their office for re-evaluation if you continue to have pain. I have sent two prescriptions to the pharmacy one for a mouthwash the second is an antibiotic. Please complete the entire course stop taking early even if you begin to feel better. Prescriptions: New chlorhexidine gluconate 0.12 % mouthwash 15 ml buccal BID 7 Days Qty: 1893 0RF clindamycin HCl 300 mg capsule 600 mg PO BID 7 Days Qty: 28 0RF No Action azithromycin 500 mg tablet 500 mg PO BID 5 Days Qty: 10 0RF levofloxacin 500 mg tablet 500 mg PO DAILY Qty: 10 0RF ondansetron 4 mg tablet,disintegrating 4 mg PO Q6H PRN (Reason: nausea and vomiting) Qty: 14 0RF ketorolac 10 mg tablet 10 mg PO TID PRN (Reason: pain) Qty: 10 0RF Rx Instructions: Do not use this medication with NSAIDs, only Tylenol if needed Referrals: Physician,None [Primary Care Provider] - Print Language: Turkish
[2024-04-23 09:39] VITALS: BP 128/88; PULSE 86; RESP 18; TEMP 36.7; O2SAT 98
== END 2024-04-23 09:40 | disposition home or self-care (01) ==
PROVIDERS: Emergency Provider Emergency Medicine Emergency Medical Services
DX: K08.89 Other specified disorders of teeth and supporting structures (principal); F12.90 Cannabis use, unspecified, uncomplicated
CPT/HCPCS: 99282; 99283

== ENCOUNTER 2024-05-26 04:52 | Emergency (ER) | payer MEDICAID, SELFPAY ==
--- NOTE | ~2024-05-26 | XR_ITS ---
CLINICAL HISTORY: dyspnea 2 view chest x-ray. Comparison: CR/SR - XR CHEST 2V - 05/04/23 01:16 EST Findings: The lungs are adequately expanded. No focal confluent opacity. No effusion or pneumothorax. Cardiac and mediastinal contours are within normal limits. No acute osseous abnormality Impression: No acute process. This document has been electronically signed by: Jona Sage MD on 05/26/2024 06:14:57
[2024-05-26 05:00] VITALS: BP 103/75; PULSE 84; RESP 20; TEMP 36.4; O2SAT 100; BMI 31.3
[2024-05-26 05:53] LABS: Influenza A PCR NEGATIVE (Negative); Influenza B PCR NEGATIVE (Negative); Resp Syncy Virus RNA Qual PCR NEGATIVE (Negative); SARS COV2 PCR INHOUSE NEGATIVE (Negative)
== END 2024-05-26 06:45 | disposition left against medical advice (07) ==
PROVIDERS: Emergency Provider Emergency Medicine Emergency Medical Services
DX: R06.02 Shortness of breath (principal); Z03.818 Encounter for observation for suspected exposure to other biological agents ruled out
CPT/HCPCS: 0241U; 71046; 99281

== ENCOUNTER → 2024-05-26 05:15 | Outpatient (BNV) | payer MEDICAID, SELFPAY | PROVIDERS: Emergency Provider Emergency Medicine Emergency Medical Services; Visit Provider Radiology Vascular & Interventional Radiology | DX: R06.00 Dyspnea, unspecified (principal) | CPT/HCPCS: 71046 ==

== ENCOUNTER 2024-07-20 08:43 | Emergency (ER) | payer MEDICAID, SELFPAY ==
--- NOTE | ~2024-07-20 | XR_ITS ---
EXAMINATION: XR LUMBAR SPINE 2-3 VIEWS HISTORY: pain s/p fall COMPARISON: There are no prior studies for comparison. FINDINGS: AP, lateral, and coned down views of the lumbar spine are submitted. Osseous mineralization is normal. Five nonrib-bearing lumbar vertebral bodies are identified, maintaining normal height and alignment without evidence of fracture or spondylolisthesis. The intervertebral disc spaces are preserved. The posterior elements are intact. The visualized paraspinal soft tissues are unremarkable. XR/XR lumbar spine 2-3V IMPRESSION: Unremarkable examination of the lumbar spine. Electronically signed by: Klaus Amos MD 07/20/2024 10:01 AM [facility]
--- NOTE | ~2024-07-20 | XR_ITS ---
EXAMINATION: XR KNEE 3 VIEWS LEFT, XR TIBIA FIBULA 2 VIEWS LEFT HISTORY: pain s/p fall COMPARISON: There are no prior studies available for comparison. FINDINGS: Five views of the left knee and AP and lateral views of the left tibia and fibula are submitted. Osseous mineralization is normal. There is no fracture or dislocation. The joint spaces are preserved. The soft tissues are unremarkable. There is no joint effusion. XR/XR tibia fibula LT 2V IMPRESSION: Unremarkable examination of the left knee and tibia and fibula. Electronically signed by: Klaus Amos MD 07/20/2024 09:59 AM [facility]
--- NOTE | ~2024-07-20 | XR_ITS ---
EXAMINATION: XR KNEE 3 VIEWS LEFT, XR TIBIA FIBULA 2 VIEWS LEFT HISTORY: pain s/p fall COMPARISON: There are no prior studies available for comparison. FINDINGS: Five views of the left knee and AP and lateral views of the left tibia and fibula are submitted. Osseous mineralization is normal. There is no fracture or dislocation. The joint spaces are preserved. The soft tissues are unremarkable. There is no joint effusion. XR/XR knee LT 3V IMPRESSION: Unremarkable examination of the left knee and tibia and fibula. Electronically signed by: Klaus Amos MD 07/20/2024 09:59 AM EST
[2024-07-20 08:53] VITALS: BP 114/78; RESP 18; TEMP 36.8; O2SAT 98; BMI 31.2
--- NOTE | 2024-07-20 09:13 | ED_ITS ---
HPI - Extremity Injury (Lower) General Chief Complaint: Extremity Injury, Lower Stated Complaint: fell on ice back l knee pain Time Seen by Provider: 07/20/24 08:57 Source: patient and RN notes reviewed Mode of arrival: ambulatory Limitations: no limitations History of Present Illness ED Provider: Yanira Jones PA-C HPI Narrative: This is a 33-year-old female who presents emergency department with complaints of left knee pain since yesterday. Patient states that she accidentally slipped and fell on ice and landed directly onto her knee. She denies hitting her head or LOC. She is not on anticoagulation. She took ibuprofen this morning which provided her with some relief. She states that she has been unable to weightbear on her left leg secondary to pain in her left knee. Denies chance of . She also reports some back pain. She denies any numbness, tingling. She states that her range of motion of her left knee has been compromised secondary to the pain in her knee. No urinary or bowel retention or incontinence. No saddle anesthesia. No other complaints or concerns at this time. MD complaint: knee injury Type of Injury: blunt Place: home Severity: moderate Relieving factors: NSAID, cold therapy, immobilization and rest Exacerbating factors: weight bearing, movement and palpation Context: fall and direct blow Associated symptoms: unable to bear weight Other symptoms: none Treatments prior to arrival: cold therapy Related Data Previous Rx's ?Medication ?Instructions ?Recorded levofloxacin 500 mg tablet 500 mg PO DAILY #10 tabs 02/27/23 ketorolac 10 mg tablet 10 mg PO TID PRN pain #10 tabs 05/04/23 ondansetron 4 mg disintegrating 4 mg PO Q6H PRN nausea and 05/04/23 tablet vomiting #14 tabs azithromycin 500 mg tablet 500 mg PO BID 5 days #10 tabs 06/18/23 chlorhexidine gluconate 0.12 % 15 ml buccal BID 7 days #1,893 mL 04/23/24 mouthwash clindamycin HCl 300 mg capsule 600 mg (2 x 300 mg) PO BID 7 days 04/23/24 #28 caps acetaminophen 500 mg tablet 1,000 mg (2 x 500 mg) PO Q6H PRN 07/20/24 (Tylenol Extra Strength) pain #30 tabs ibuprofen 600 mg tablet 600 mg PO Q6H PRN pain #30 tabs 07/20/24 Allergies Allergy/AdvReac Type Severity Reaction Status Date / Time amoxicillin Allergy Rash Verified 07/20/24 08:54 aspirin Allergy Rash Verified 07/20/24 08:54 Iodinated Contrast Media Allergy Swelling Verified 07/20/24 08:54 [IV Contrast Dye] oxycodone Allergy Rash Verified 07/20/24 08:54 Penicillins Allergy Rash Verified 07/20/24 08:54 Review of Systems Review of Systems: Yes all other systems are reviewed and are negative Constitutional: Constitutional: Reports as per [facility] Past Medical History Medical History (Updated 07/20/24 @ 10:54 by WAQAR Oro) COVID-19 Social History Social History Substance Use Type: Marijuana Advance Directives: No Advance Directives Information Provided: Yes Physical Exam Vital Signs: Vital Signs: Last Vital Signs Temp 98.2 F 07/20/24 08:53 Resp 18 07/20/24 08:53 BP 114/78 07/20/24 08:53 Pulse Ox 98 07/20/24 08:53 O2 Del Method Room Air 07/20/24 08:53 BMI result Body Mass Index 31.2 Const: General: cooperative, comfortable and no acute distress Orientation/consciousness: patient oriented x3 Limitations: no limitations HEENT: Head: Yes normal to inspection, Yes normocephalic and Yes atraumatic Ears: hearing grossly normal bilaterally General nose exam: Normal external nose present Face and sinus: Yes normal facial exam Mouth: Normal oral and palatal mucosa present, oropharynx normal and moist mucous membranes Throat: Yes posterior oropharynx normal Eyes: General: appearance normal, both eyes and all related structures Eyelids: Yes eyelids normal Conjunctivae: conjunctivae normal Sclerae: sclerae normal Pupils: Equal, round and reactive pupils present EOM: EOMs intact bilaterally Neck: Neck: Yes normal visual inspection, Yes full ROM and Yes no lymphadenopathy Lymphatic: no lymphadenopathy noted Chest: Chest palpation & inspection: normal inspection of the chest Resp: Effort & Inspection: normal respiratory effort and able to speak in complete sentences Auscultation: clear to auscultation bilaterally, no crackles, no rales, no rhonchi and no wheezes Cardio: Rate: regular rate Rhythm: regular rhythm Heart sounds: S1 normal heart sound present and S2 normal heart sound present GI: Inspection: Yes normal to inspection Back/Spine/Pelvis: Other: No overlying skin changes, ecchymosis. She does have tenderness palpation along the lumbar paraspinous muscles. Skin: General skin exam: no rashes or lesions noted Trauma: no lacerations or abrasions Wounds: no wounds Neuro: General: patient oriented x3 and moves all extremities Cranial nerves: Yes Equal, round and reactive pupils present Extrem: Other: Left knee, inferior to the patella, there is a area of ecchymosis, she does have tenderness palpation diffusely throughout the entire knee joint, she has no palpable deformity noted overlying the Achilles tendon. Torres test is intact. She is able to flex at the knee to approximately 20-30 degrees. Strong DP pulse. General: Yes normal to inspection Right upper extremity: normal to inspection Left upper extremity: normal to inspection Right lower extremity: normal to inspection Medications Administered Discontinued Medications Generic Name Dose Route Start Last Admin Trade Name Freq PRN Reason Stop Dose Admin Acetaminophen 975 mg 07/20/24 09:18 07/20/24 10:01 Acetaminophen 325 Mg Tablet PO 07/20/24 09:19 975 mg ONCE ONE Administration Ondansetron HCl 4 mg 07/20/24 09:18 07/20/24 10:01 Ondansetron Odt 4 Mg Tab.Rapdis TRANSLINGU 07/20/24 09:19 4 mg ONCE ONE Administration Medical Decision Making Medical Decision Making [facility] Narrative: This is a 33-year-old female who presents emergency department with concerns for left knee pain. On arrival, vital signs within normal limits. She is nonambulatory on her left leg secondary to pain. She has tenderness palpation inferiorly to her right knee, diffusely throughout her knee, some range of motion, she was no hamstring defect or abnormality seen. Achilles tendon is intact. Strong DP pulse. Leg is well perfused. Differential diagnoses include contusion, fracture, internal derangement, ligamentous injury, strain. X-rays of the knee and tib-fib were obtained revealing no acute bony abnormalities. Lumbar spine x-rays unremarkable. Discussed findings with patient. She will follow-up with the client services specialist. She was placed in a knee immobilizer given pain in her knee, decreased range of motion, unable to rule out any ligamentous injury. Given strict return precautions. She understands and agrees with plan. Patient stable for discharge Differential Diagnosis Differential Diagnoses: The differential diagnosis associated with the present ation includes See above Radiology Impression Discussion of test interpretation with radiology: I have reviewed the radiologist's reading. Radiologist Impression: [address] [address] XRay Report Signed Patient: Morena Dewitt MR#: [id number] : 1990 Acct:[id number] Age/Sex: 33 / F ADM Date: 07/20/24 Loc: HO.ED Attending Dr: Ordering Physician: Yanira Jones Date of Service: 07/20/24 Procedure(s): XR tibia fibula LT 2V Accession Number(s): [id number] cc: Yanira Jones; Physician,None ~ EXAMINATION: XR KNEE 3 VIEWS LEFT, XR TIBIA FIBULA 2 VIEWS LEFT HISTORY: pain s/p fall COMPARISON: There are no prior studies available for comparison. FINDINGS: Five views of the left knee and AP and lateral views of the left tibia and fibula are submitted. Osseous mineralization is normal. There is no fracture or dislocation. The joint spaces are preserved. The soft tissues are unremarkable. There is no joint effusion. XR/XR tibia fibula LT 2V IMPRESSION: Unremarkable examination of the left knee and tibia and fibula. Electronically signed by: Klaus Amos MD 07/20/2024 09:59 AM EST Dictated By: Klaus Amos MD [address] [address] XRay Report Signed Patient: Morena Dewitt MR#: [id number] : 1990 Acct:[id number] Age/Sex: 33 / F ADM Date: 07/20/24 Loc: HO.ED Attending Dr: Ordering Physician: Yanira Jones Date of Service: 07/20/24 Procedure(s): XR lumbar spine 2-3V Accession Number(s): [id number] cc: Yanira Jones; Physician,None ~ EXAMINATION: XR LUMBAR SPINE 2-3 VIEWS HISTORY: pain s/p fall COMPARISON: There are no prior studies for comparison. FINDINGS: AP, lateral, and coned down views of the lumbar spine are submitted. Osseous mineralization is normal. Five nonrib-bearing lumbar vertebral bodies are identified, maintaining normal height and alignment without evidence of fracture or spondylolisthesis. The intervertebral disc spaces are preserved. The posterior elements are intact. The visualized paraspinal soft tissues are unremarkable. XR/XR lumbar spine 2-3V IMPRESSION: Unremarkable examination of the lumbar spine. Electronically signed by: Klaus Amos MD 07/20/2024 10:01 AM EST RP Dictated By: Klaus Amos MD [address] [address] XRay Report Signed Patient: Morena Dewitt MR#: [id number] : 1990 Acct:[id number] Age/Sex: 33 / F ADM Date: 07/20/24 Loc: .ED Attending Dr: Ordering Physician: Yanira Jones Date of Service: 07/20/24 Procedure(s): XR knee LT 3V Accession Number(s): [id number] cc: Yanira Jones; Physician,None ~ EXAMINATION: XR KNEE 3 VIEWS LEFT, XR TIBIA FIBULA 2 VIEWS LEFT HISTORY: pain s/p fall COMPARISON: There are no prior studies available for comparison. FINDINGS: Five views of the left knee and AP and lateral views of the left tibia and fibula are submitted. Osseous mineralization is normal. There is no fracture or dislocation. The joint spaces are preserved. The soft tissues are unremarkable. There is no joint effusion. XR/XR knee LT 3V IMPRESSION: Unremarkable examination of the left knee and tibia and fibula. Electronically signed by: Klaus Amos MD 07/20/2024 09:59 AM EST RP Dictated By: Klaus Amos MD Discharge Plan Discharge Clinical Impression: Contusion of knee, left Patient Disposition: Home, Self-Care Instructions: Contusion in Adults (ED), Knee Pain (ED) Additional Instructions: You were seen in the emergency department due to left knee pain. Your x-rays did not show any new bony abnormalities or fractures. X-rays only show bones, does not show ligaments or tendons therefore we placed you in a knee immobilizer and gave you crutches. I want you to follow-up with the client services specialist, call today to make an appointment. Rest, ice, and elevate your leg. Alternate between ibuprofen and or Tylenol as needed for pain and symptoms. Do not weightbear on your leg until you no longer have pain. If any new or worsening symptoms occur including but not limited to severe calf pain, severe chest pain, shortness for breath, changes in coloration of your leg, please seek emergent care. Prescriptions: New ibuprofen 600 mg tablet 600 mg PO Q6H PRN (Reason: pain) Qty: 30 0RF acetaminophen [Tylenol Extra Strength] 500 mg tablet 1,000 mg PO Q6H PRN (Reason: pain) Qty: 30 0RF No Action azithromycin 500 mg tablet 500 mg PO BID 5 Days Qty: 10 0RF chlorhexidine gluconate 0.12 % mouthwash 15 ml buccal BID 7 Days Qty: 1893 0RF clindamycin HCl 300 mg capsule 600 mg PO BID 7 Days Qty: 28 0RF levofloxacin 500 mg tablet 500 mg PO DAILY Qty: 10 0RF ondansetron 4 mg tablet,disintegrating 4 mg PO Q6H PRN (Reason: nausea and vomiting) Qty: 14 0RF ketorolac 10 mg tablet 10 mg PO TID PRN (Reason: pain) Qty: 10 0RF Rx Instructions: Do not use this medication with NSAIDs, only Tylenol if needed Referrals: [facility] [Provider Group] Stand Alone Forms: Work/School Release Print Language: Azeri
[2024-07-20] MEDS: Acetaminophen 325 MG TABLET 975 MG PO (10:01)
[2024-07-20] MEDS: Ondansetron ODT 4 MG TAB.RAPDIS TRANSLINGU (10:01)
[2024-07-20 11:37] VITALS: BP 114/78; PULSE 85; RESP 18; TEMP 36.8; O2SAT 98
== END 2024-07-20 11:37 | disposition home or self-care (01) ==
PROVIDERS: Emergency Provider Emergency Medicine
DX: S80.02XA Contusion of left knee, initial encounter (principal); W00.0XXA Fall on same level due to ice and snow, initial encounter; M25.562 Pain in left knee; Y93.01 Activity, walking, marching and hiking; Y92.9 Unspecified place or not applicable; Y99.9 Unspecified external cause status
CPT/HCPCS: 72100; 73562; 73590; 99283

== ENCOUNTER → 2024-07-20 09:18 | Outpatient (BNV) | payer MEDICAID, SELFPAY | PROVIDERS: Emergency Provider Emergency Medicine; Visit Provider Radiology Diagnostic Radiology | DX: M54.50 Low back pain, unspecified (principal); M25.562 Pain in left knee; M79.662 Pain in left lower leg | CPT/HCPCS: 72100; 73562; 73590 ==

== ENCOUNTER 2024-07-29 08:15 | Outpatient (REF) | payer MEDICAID, SELFPAY | END 2024-07-29 08:16 | disposition home or self-care (01) | LOC: HO.HOSX 08:15 | PROVIDERS: Visit Provider Physician Assistant | DX: Z13.89 Encounter for screening for other disorder (principal) ==

== ENCOUNTER 2024-08-19 22:53 | Emergency (ER) | payer MEDICAID, SELFPAY ==
--- NOTE | 2024-08-19 | ECG_ITS ---
Test Reason : SOB Blood Pressure : */* mmHG Vent. Rate : 105 BPM Atrial Rate : 105 BPM P-R Int : 122 ms QRS Dur : 82 ms QT Int : 348 ms P-R-T Axes : 73 31 65 degrees QTcB Int : 459 ms Sinus tachycardia Otherwise normal ECG No previous ECGs available Referred By: Generic ED Physician Electronically Signed By: RAFI MARRERO MD
--- NOTE | ~2024-08-19 | XR_ITS ---
CLINICAL HISTORY: cough, sob 1 view chest x-ray Comparison: CR - XR CHEST 2V - 05/26/24 05:21 EST Findings: The lungs are clear, within the limitations of exposure artifact in the upper lung morales. Normal size heart. No acute fracture. IMPRESSION: 1. No acute findings. This document has been electronically signed by: Ector Saunders MD on 08/20/2024 00:20:55
[2024-08-19 22:55] VITALS: BP 114/68; PULSE 144; RESP 24; TEMP 36.8; O2SAT 99; BMI 32.0
--- NOTE | 2024-08-19 23:17 | ED.URI ---
HPI - URI/Sore Throat General Chief Complaint: Upper Respiratory Symptoms Stated Complaint: Cough - chest tightness - diff breathing Time Seen by Provider: 08/19/24 23:11 Source: patient Mode of arrival: ambulatory Limitations: no limitations History of Present Illness ED Provider: HPI Narrative: Patient has no prior lung issues no history of asthma been having wheezing with cough bout for last 4 days producing mucopurulent phlegm and nasal discharge no fever but does have chills no other family member sick at this time Related Data Previous Rx's ?Medication ?Instructions ?Recorded levofloxacin 500 mg tablet 500 mg PO DAILY #10 tabs 02/27/23 ketorolac 10 mg tablet 10 mg PO TID PRN pain #10 tabs 05/04/23 ondansetron 4 mg disintegrating 4 mg PO Q6H PRN nausea and 05/04/23 tablet vomiting #14 tabs azithromycin 500 mg tablet 500 mg PO BID 5 days #10 tabs 06/18/23 chlorhexidine gluconate 0.12 % 15 ml buccal BID 7 days #1,893 mL 04/23/24 mouthwash clindamycin HCl 300 mg capsule 600 mg (2 x 300 mg) PO BID 7 days 04/23/24 #28 caps acetaminophen 500 mg tablet 1,000 mg (2 x 500 mg) PO Q6H PRN 07/20/24 (Tylenol Extra Strength) pain #30 tabs ibuprofen 600 mg tablet 600 mg PO Q6H PRN pain #30 tabs 07/20/24 albuterol sulfate 90 mcg/actuation 2 puff inhalation Q6H PRN 08/20/24 aerosol inhaler shortness of breath or wheezing #8.5 grams azithromycin 250 mg tablet 250 mg PO DAILY 4 days #4 tabs 08/20/24 (Zithromax) cefuroxime axetil 500 mg tablet 500 mg PO BID 7 days #14 tabs 08/20/24 codeine 10 mg-guaifenesin 100 mg/5 10 ml PO Q6H PRN cough #237 mL 08/20/24 mL oral liquid prednisone 20 mg tablet 40 mg (2 x 20 mg) PO DAILY #10 tabs 08/20/24 Allergies Allergy/AdvReac Type Severity Reaction Status Date / Time amoxicillin Allergy Rash Verified 08/19/24 22:56 aspirin Allergy Rash Verified 08/19/24 22:56 Iodinated Contrast Media Allergy Swelling Verified 08/19/24 22:56 [IV Contrast Dye] oxycodone Allergy Rash Verified 08/19/24 22:56 Penicillins Allergy Rash Verified 08/19/24 22:56 Review of Systems Review of Systems: Yes all other systems are reviewed and are negative [facility] Past Medical History Medical History COVID-19 Social History Social History Substance Use Type: Marijuana Physical Exam Vital Signs: Vital Signs: Last Vital Signs Temp 98.9 F 08/20/24 01:11 Pulse 87 08/20/24 01:11 Resp 20 08/20/24 01:11 BP 102/67 08/20/24 01:11 Pulse Ox 98 08/20/24 01:11 O2 Del Method Room Air 08/20/24 01:11 BMI result Body Mass Index 32.0 Appearance: Alert. Oriented X3. No acute distress. Eyes: No pallor or icterus ENT: Pharynx normal. Oral Mucosa moist Neck: Normal inspection. Neck supple. CVS: Normal heart rate and rhythm. Pulses normal. Respiratory: No respiratory distress. Equal air entry bilateral, bilateral wheezing Abdomen: Soft and nontender. Bowel sounds are present, no mass palpable, no CVA tenderness Skin: Skin warm and dry. Normal skin color. Normal skin turgor. Extremities: No lower extremity edema. No calf tenderness Neuro: Oriented X 3. No motor deficit. Medications Administered Discontinued Medications Generic Name Dose Route Start Last Admin Trade Name Mansoorq PRN Reason Stop Dose Admin Albuterol Sulfate 2 puff 08/20/24 00:20 08/20/24 00:57 Albuterol Sulfate 90 Mcg 8 Gm Inhaler INHALE 08/20/24 00:21 2 puff ONCE ONE Administration Azithromycin 500 mg 08/20/24 00:18 08/20/24 00:57 Azithromycin 500 Mg Tablet PO 08/20/24 00:19 500 mg ONCE ONE Administration Cefuroxime Axetil 500 mg 08/20/24 00:18 08/20/24 00:57 Cefuroxime Axetil 500 Mg Tablet PO 08/20/24 00:19 500 mg ONCE ONE Administration Albuterol Sulfate 2.5 mg/ 0 mg 08/19/24 23:42 08/19/24 23:47 Albuterol/Ipratropium 3 ml INHALE 08/19/24 23:43 1 dose ONCE ONE Administration Guaifenesin/Codeine Phosphate 10 ml 08/20/24 00:19 08/20/24 00:57 Guaifen/Codeine Sf 200/20/10ml 10 Ml Liquid PO 08/20/24 00:20 10 ml ONCE ONE Administration Methylprednisolone Sodium Succinate 125 mg 08/19/24 23:42 08/19/24 23:59 Methylprednisolone Sod Succ 125 Mg/2 Ml Vial IVPUSH 08/19/24 23:43 125 mg ONCE ONE Administration Medical Decision Making Medical Decision Making [facility] Narrative: Patient has acute bronchitis workup is negative having persistently cough will prescribe antibiotic for atypical bacterial cause for the bronchitis chest x-ray negative for acute patient felt better after nebulizing treatment and steroids Lab Data [facility] Lab Attestation statement: I reviewed the patient's lab results. 08/19/24 23:22 08/19/24 23:22 Labs: Lab Results 08/19/24 Range/Units 23:22 WBC 7.4 (4.8-10.8) X10*3/uL RBC 4.49 (4.20-5.50) X10*6/uL Hgb 13.8 (12.0-16.0) g/dl Hct 39.1 (37.0-47.0) % MCV 87.1 (80.0-98.0) fL MCH 30.7 (27.0-33.0) pg MCHC 35.3 H (31.0-35.0) g/dl RDW 12.8 (11.0-16.0) % Plt Count 260 (160-400) X10*3/uL MPV 10.3 (9.4-12.3) fL Immature Gran % (Auto) 0.4 (0.0-0.4) % Neut % (Auto) 37.7 L (45-73) % Lymph % (Auto) 49.0 H (20-40) % [place] % (Auto) 10.9 (2-11) % Eos % (Auto) 1.6 (0-4) % Baso % (Auto) 0.4 (0-2) % Lymph # (Auto) 3.6 (1.2-4.9) X10*3/uL [place] # (Auto) 0.8 (0.1-1.2) X10*3/uL Eos # (Auto) 0.1 (0.0-0.4) X10*3/uL Baso # (Auto) 0.0 (0.0-0.2) X10*3/uL Abs Immat Gran (auto) 0.03 (0.00-0.03) X10*3/uL Absolute Neuts (auto) 2.8 (2.0-8.3) x10*3/uL Absolute Nucleated RBC 0.000 (0.0-0.012) X10*3/uL Nucleated RBC % (auto) 0.0 (0.0-0.2) /100WBC Sodium 143 (135-145) mmol/L Potassium 3.4 (3.3-5.1) mmol/L Chloride 111 H (96-108) mmol/L Carbon Dioxide 22 (22-29) mmol/L Anion Gap 13 (12-20) BUN 16 (9-16) mg/dL Creatinine 0.76 (0.5-1.4) mg/dL Estim Creat Clear Calc 102.7 Estimated GFR > 60 Random Glucose 116 H (60-115) mg/dL Calcium 9.1 (8.4-10.2) mg/dL Magnesium 1.8 (1.6-2.6) mg/dL Total Bilirubin 0.2 (0.0-1.0) mg/dL AST 22 (5-31) U/L ALT 21 (0-31) U/L Alkaline Phosphatase 91 (39-117) U/L Troponin I High Sens < 2.7 (<3.5-17.0) ng/L Total Protein 7.4 (6.5-8.0) g/dL Albumin 4.3 (3.5-5.0) g/dL Influenza Type A (PCR) NEGATIVE (Negative) Influenza Type B (PCR) NEGATIVE (Negative) RSV RNA Qual (PCR) NEGATIVE (Negative) SARS-CoV-2 RNA (RT-PCR) NEGATIVE (Negative) Independent Interpretation I performed an independent interpretation of an: Plain X-Ray Interpretation: NAD Radiology Impression Discussion of test interpretation with radiology: I have reviewed the radiologist's reading. Discharge Plan Discharge Clinical Impression: Bronchitis Patient Disposition: Home, Self-Care Instructions: Acute Bronchitis (ED) Additional Instructions: Take antibiotics, prednisone, inhaler as prescribed Cough syrup as prescribed Follow the PCP if not better Your COVID, flu, RSV and chest x-ray negative for acute likely have atypical bacteria causing the bronchitis Prescriptions: New azithromycin [Zithromax] 250 mg tablet 250 mg PO DAILY 4 Days Qty: 4 0RF Rx Instructions: start on day 2 of therapy cefuroxime axetil 500 mg tablet 500 mg PO BID 7 Days Qty: 14 0RF codeine-guaifenesin 10-100 mg/5 mL liquid 10 ml PO Q6H PRN (Reason: cough) Qty: 237 0RF prednisone 20 mg tablet 40 mg PO DAILY Qty: 10 0RF albuterol sulfate 90 mcg/actuation HFA aerosol inhaler 2 puff inhalation Q6H PRN (Reason: shortness of breath or wheezing) Qty: 8.5 0RF No Action azithromycin 500 mg tablet 500 mg PO BID 5 Days Qty: 10 0RF chlorhexidine gluconate 0.12 % mouthwash 15 ml buccal BID 7 Days Qty: 1893 0RF clindamycin HCl 300 mg capsule 600 mg PO BID 7 Days Qty: 28 0RF ibuprofen 600 mg tablet 600 mg PO Q6H PRN (Reason: pain) Qty: 30 0RF acetaminophen [Tylenol Extra Strength] 500 mg tablet 1,000 mg PO Q6H PRN (Reason: pain) Qty: 30 0RF levofloxacin 500 mg tablet 500 mg PO DAILY Qty: 10 0RF ondansetron 4 mg tablet,disintegrating 4 mg PO Q6H PRN (Reason: nausea and vomiting) Qty: 14 0RF ketorolac 10 mg tablet 10 mg PO TID PRN (Reason: pain) Qty: 10 0RF Rx Instructions: Do not use this medication with NSAIDs, only Tylenol if needed Interventions: ED Discharge Assessment Last Done: 08/20/24 01:11 Discharge Date/Time: 08/20/24 01:11 Print Language: Omani
--- NOTE | 2024-08-19 23:24 | PC.NURSE ---
18g IV access established in left AC. Labs drawn and sent for analysis.
[2024-08-19 23:28] LABS: MANUAL DIFF FLAG NO
[2024-08-19 23:29] LABS: Basophils Percent Auto 0.4 % (0-2); Eosinophils Absolute Auto 0.1 X10*3/uL (0.0-0.4); Eosinophils Percent Auto 1.6 % (0-4); Hematocrit 39.1 % (37.0-47.0); Hemoglobin 13.8 g/dl (12.0-16.0); Imm Gran Abs Auto 0.03 X10*3/uL (0.00-0.03); Imm Gran Pct Auto 0.4 % (0.0-0.4); Lymphocytes Absolute Auto 3.6 X10*3/uL (1.2-4.9); Mean Corpuscular HGB Conc 35.3 g/dl (31.0-35.0); Mean Corpuscular Hemoglobin 30.7 pg (27.0-33.0); Mean Corpuscular Volume 87.1 fL (80.0-98.0); Mean Platelet Volume 10.3 fL (9.4-12.3); Monocytes Absolute Auto 0.8 X10*3/uL (0.1-1.2); Monocytes Percent Auto 10.9 % (2-11); Neutrophils Absolute Auto 2.8 x10*3/uL (2.0-8.3); Neutrophils Percent Auto 37.7 % (45-73); Platelet Count 260 X10*3/uL (160-400); Red Blood Count 4.49 X10*6/uL (4.20-5.50); Red Cell Distribution Width 12.8 % (11.0-16.0); White Blood Count 7.4 X10*3/uL (4.8-10.8)
--- NOTE | 2024-08-19 23:29 | PC.NURSE ---
Patient had syncopal episode, caught by staff in radiology. Lowered into wheelchair. No head strike, no other injuries. Patient is pale, cough with wheeze noted, diaphoretic. Brought to ED 12, placed on cardiac technologist, tachycardia 100-110s, anxious. Chest xray being obtained at bedside at this time. Boyfriend (Selvin) at bedside for support. States that she has felt this way for 3-4 days, and was going to come to ED yesterday, but didn't check in after seeing many people in the waiting room. Encouraged to check in by boyfriend. Reports chest pain, cough, nausea, intermittent confusion/AMS, & passing out. Denies known pulmonary or cardiac disorders. Primary RN Augusta Araya aware.
[2024-08-19 23:43] LABS: Albumin Level 4.3 g/dL (3.5-5.0); Alkaline Phosphatase 91 U/L (39-117); Anion Gap 13 (12-20); Aspartate Amino Transferase 22 U/L (5-31); Bilirubin Total 0.2 mg/dL (0.0-1.0); Blood Urea Nitrogen 16 mg/dL (9-16); Calcium 9.1 mg/dL (8.4-10.2); Carbon Dioxide 22 mmol/L (22-29); Chloride 111 mmol/L (96-108); Creatinine Clr Calc Pharmacy 102.7; Estimated Glomerular Filt Rate > 60; Glucose Random 116 mg/dL (60-115); Magnesium 1.8 mg/dL (1.6-2.6); Potassium 3.4 mmol/L (3.3-5.1); Sodium 143 mmol/L (135-145); Total Protein 7.4 g/dL (6.5-8.0)
[2024-08-19] MEDS: Albuterol Sulfate 2.5 MG, Albuterol/Iprat 2.5/0.5MG 3 ML 3 ML INHALE (23:47)
[2024-08-19 23:48] LABS: Troponin-I High Sensitivity < 2.7 ng/L (<3.5-17.0)
[2024-08-19 23:53] VITALS: PULSE 95; RESP 18; O2SAT 98
[2024-08-19 23:53] LABS: Alanine Aminotransferase 21 U/L (0-31)
[2024-08-19] MEDS: methylPREDNISolone Sod Succ 125 MG/2 ML VIAL IVPUSH (23:59)
[2024-08-20 00:06] LABS: Influenza A PCR NEGATIVE (Negative); Influenza B PCR NEGATIVE (Negative); Resp Syncy Virus RNA Qual PCR NEGATIVE (Negative); SARS COV2 PCR INHOUSE NEGATIVE (Negative)
[2024-08-20] MEDS: Azithromycin 500 MG TABLET PO (00:57)
[2024-08-20] MEDS: cefuroxime axetiL 500 MG TABLET PO (00:57)
[2024-08-20] MEDS: Albuterol Sulfate 90 MCG 8 GM INHALER 2 PUFF INHALE (00:57)
[2024-08-20] MEDS: guaiFEN/Codeine SF 200/20/10ML 10 ML LIQUID PO (00:57)
[2024-08-20 01:08] VITALS: BP 102/67; PULSE 87; RESP 20; TEMP 37.2; O2SAT 98
[2024-08-20 01:11] VITALS: BP 102/67; PULSE 87; RESP 20; TEMP 37.2; O2SAT 98
== END 2024-08-20 01:11 | disposition home or self-care (01) ==
PROVIDERS: Emergency Provider Internal Medicine; PCP Dentist General Practice
DX: J40 Bronchitis, not specified as acute or chronic (principal); R05.9 Cough, unspecified; Z03.818 Encounter for observation for suspected exposure to other biological agents ruled out
CPT/HCPCS: 0241U; 71045; 80053; 83735; 84484; 85025; 93005; 94640; 96374; 99284; 99285; J2919

== ENCOUNTER → 2024-08-19 23:16 | Outpatient (BNV) | payer MEDICAID, SELFPAY | PROVIDERS: Emergency Provider Internal Medicine; PCP Dentist General Practice; Visit Provider Internal Medicine Cardiovascular Disease | DX: R00.0 Tachycardia, unspecified (principal); R06.02 Shortness of breath | CPT/HCPCS: 93010 ==

== ENCOUNTER → 2024-08-19 23:35 | Outpatient (BNV) | payer MEDICAID, SELFPAY | PROVIDERS: Emergency Provider Internal Medicine; PCP Dentist General Practice; Visit Provider Radiology Diagnostic Radiology | DX: R05.9 Cough, unspecified (principal); R06.02 Shortness of breath | CPT/HCPCS: 71045 ==

== ENCOUNTER 2024-11-13 04:21 | Emergency (ER) | payer MEDICAID, SELFPAY ==
--- NOTE | ~2024-11-13 | XR_ITS ---
EXAMINATION: XR CHEST CLINICAL INFORMATION: mid thoracic pain radiating to chest COMPARISON: August 19, 2024. TECHNIQUE: 2 views of the chest were obtained. FINDINGS: No consolidation pleural effusion or pneumothorax. Cardiomediastinal silhouette size is normal. Osseous structures are intact. XR/XR chest 2V IMPRESSION: No acute airspace disease. Stable chest. Electronically signed by: Santy Sahni MD 11/13/2024 09:04 AM EDT
[2024-11-13 04:25] VITALS: BMI 31.1
[2024-11-13 04:52] VITALS: BP 122/63; PULSE 86; RESP 20; TEMP 36.4; O2SAT 100
[2024-11-13] MEDS: Ketorolac Tromethamine 60 MG/2 ML VIAL IM (05:11)
--- NOTE | 2024-11-13 05:30 | PC.NURSE ---
pt skin clammy stating she is in pain, frequent grimacing, moaning. assisted to stretcher. medicated per mar and ice packs applied to back. fiance in room. labs sent.
[2024-11-13 05:31] LABS: MANUAL DIFF FLAG NO
[2024-11-13 05:32] LABS: Basophils Percent Auto 0.3 % (0-2); Eosinophils Absolute Auto 0.1 X10*3/uL (0.0-0.4); Eosinophils Percent Auto 1.4 % (0-4); Hematocrit 39.2 % (37.0-47.0); Hemoglobin 13.5 g/dl (12.0-16.0); Imm Gran Abs Auto 0.03 X10*3/uL (0.00-0.03); Imm Gran Pct Auto 0.3 % (0.0-0.4); Lymphocytes Absolute Auto 3.2 X10*3/uL (1.2-4.9); Lymphocytes Percent Auto 33.9 % (20-40); Mean Corpuscular HGB Conc 34.4 g/dl (31.0-35.0); Mean Corpuscular Hemoglobin 30.2 pg (27.0-33.0); Mean Corpuscular Volume 87.7 fL (80.0-98.0); Mean Platelet Volume 10.1 fL (9.4-12.3); Monocytes Absolute Auto 0.7 X10*3/uL (0.1-1.2); Monocytes Percent Auto 7.6 % (2-11); Neutrophils Absolute Auto 5.3 x10*3/uL (2.0-8.3); Neutrophils Percent Auto 56.5 % (45-73); Platelet Count 281 X10*3/uL (160-400); Red Blood Count 4.47 X10*6/uL (4.20-5.50); Red Cell Distribution Width 12.4 % (11.0-16.0); White Blood Count 9.4 X10*3/uL (4.8-10.8)
[2024-11-13 05:48] LABS: Alanine Aminotransferase 15 U/L (0-31); Albumin Level 4.7 g/dL (3.5-5.0); Alkaline Phosphatase 76 U/L (39-117); Anion Gap 13 (12-20); Aspartate Amino Transferase 16 U/L (5-31); Bilirubin Total 0.2 mg/dL (0.0-1.0); Blood Urea Nitrogen 17 mg/dL (9-16); Calcium 9.6 mg/dL (8.4-10.2); Carbon Dioxide 23 mmol/L (22-29); Chloride 110 mmol/L (96-108); Creatinine Clr Calc Pharmacy 102.9; Estimated Glomerular Filt Rate > 60; Glucose Random 102 mg/dL (60-115); Potassium 3.9 mmol/L (3.3-5.1); Sodium 142 mmol/L (135-145); Total Protein 7.4 g/dL (6.5-8.0)
[2024-11-13 06:06] VITALS: BP 112/80; PULSE 72; RESP 17; TEMP 36.7; O2SAT 99
--- NOTE | 2024-11-13 08:17 | ECG_ITS ---
Test Reason : chest pain Blood Pressure : */* mmHG Vent. Rate : 63 BPM Atrial Rate : 63 BPM P-R Int : 136 ms QRS Dur : 88 ms QT Int : 422 ms P-R-T Axes : 22 17 21 degrees QTcB Int : 431 ms Normal sinus rhythm Cannot rule out Anterior infarct , age undetermined Abnormal ECG When compared with ECG of 19-Aug-2024 23:16, Vent. rate has decreased by 42 bpm Referred By: Anabel Wood Electronically Signed By: Mansoor Michael
--- NOTE | 2024-11-13 08:21 | ED_ITS ---
HPI - Back Pain/Injury General Chief Complaint: Back Pain/Injury Stated Complaint: spine pain neck pain arm pain Time Seen by Provider: 11/13/24 07:57 Source: patient Mode of arrival: ambulatory Limitations: no limitations History of Present Illness ED Provider: Anabel Wood NP HPI Narrative: Patient is a 34 year old female presents emergency department for evaluation. She reports yesterday afternoon while making her children lunch she had sudden onset of intense shooting pain to her midthoracic spine. Pain was persistent than out to the remainder of the day/evening. She awoke from sleep at 03:00 this morning she reports yelling out in pain. She reports at times the pain wraps around beneath the bilateral breast and into the center of her chest. It is exacerbated with movement of the arms as well as deep breathing. She denies associated shortness of breath, recent URI symptoms, constant chest pain, numbness or tingling of the extremities. Denies any precipitating injury, no recent fevers, chills, burning with micturition, urinary frequency/urgency/hesitancy, bladder or bowel dysfunction, numbness or tingling of the perineum or bilateral legs. Denies any recent surgical procedures, any known immune compromising conditions, personal history of cancer, or IV drug usage. MD elicited complaint: back pain Related Data Previous Rx's ?Medication ?Instructions ?Recorded levofloxacin 500 mg tablet 500 mg PO DAILY #10 tabs ketorolac 10 mg tablet 10 mg PO TID PRN pain #10 ta bs 05/04/23 ondansetron 4 mg disintegrating 4 mg PO Q6H PRN nausea and 05/04/23 tablet vomiting #14 tabs azithromycin 500 mg tablet 500 mg PO BID 5 days #10 ta bs 06/18/23 chlorhexidine gluconate 0.12 % 15 ml buccal BID 7 days #1,893 mL 04/23/24 mouthwash clindamycin HCl 300 mg capsule 600 mg (2 x 300 mg) PO BID 7 days 04/23/24 #28 caps acetaminophen 500 mg tablet 1,000 mg (2 x 500 mg) PO Q 6H PRN 07/20/24 (Tylenol Extra Strength) pain #30 tabs ibuprofen 600 mg tablet 600 mg PO Q6H PRN pain #30 t abs 07/20/24 albuterol sulfate 90 mcg/actuation 2 puff inhalation Q 6H PRN 08/20/24 aerosol inhaler shortness of breath or wheez ing #8.5 grams azithromycin 250 mg tablet 250 mg PO DAILY 4 days #4 t abs 08/20/24 (Zithromax) cefuroxime axetil 500 mg tablet 500 mg PO BID 7 days # 14 tabs 08/20/24 codeine 10 mg-guaifenesin 100 mg/5 10 ml PO Q6H PRN co ugh #237 mL 08/20/24 mL oral liquid prednisone 20 mg tablet 40 mg (2 x 20 mg) PO DAILY # 10 tabs 08/20/24 diazepam 5 mg tablet 5 mg PO BID PRN muscle spasm #10 11/13/24 tabs lidocaine 5 % topical patch 1 patch topical DAILY #15 ea 11/13/24 prednisone 20 mg tablet 20 mg PO DAILY #5 tabs 11/13 Allergies Allergy/AdvReac Type Severity Reaction Status Date / Time amoxicillin Allergy Rash Verified 11/13/24 04:26 aspirin Allergy Rash Verified 11/13/24 04:26 Iodinated Contrast Media (IV Allergy Swelling Verified 11/13/24 04:26 Contrast Dye) oxycodone Allergy Rash Verified 11/13/24 04:26 Penicillins Allergy Rash Verified 11/13/24 04:26 Review of Systems 2 Review of Systems: Yes all other systems are reviewed and are negative PMFSH Past Medical History Attestation statement: The following information was validated with the patient. Source: old records reviewed Medical History COVID-19 Social History Social History Alcohol intake: current Alcohol intake frequency: holidays/special occasions only Smoked in Last 30 Days: No Use of substances other than those prescribed or required for medical reasons: No Substance Use Type: Marijuana Advance Directives: No Advance Directives Information Provided: Yes Patient : No Physical Exam 2 Vital Signs: Vital Signs: Last Vital Signs Temp 98.0 F 11/13/24 06:06 Pulse 88 11/13/24 08:29 Resp 20 11/13/24 08:29 BP 106/77 11/13/24 08:29 Pulse Ox 98 11/13/24 08:29 O2 Del Method Room Air 11/13/24 08:29 BMI result Body Mass Index 31.1 Appearance: Alert.?Oriented to person, place and time. No acute distress.?Normal affect. Eyes: Pupils equal, round and reactive to light.? ENT: Pharynx normal.?? Neck: Normal inspection.? Neck supple.?? CVS: Heart sounds normal. Normal heart rate and rhythm.? Pulses normal; bilateral radial pulses 2+, bilateral posterior tibial/dorsalis pedis pulses 2+.? Respiratory: No respiratory distress.? Lung sounds clear to auscultation bilaterally?? Abdomen: Soft and non-tender. Normoactive bowel sounds. No pulsatile mass.?? Skin: Skin warm and dry.? Normal skin color.? Extremities: No lower extremity edema.? No calf ttp? Back: + midline thoracic spine TTP T4-T7 without palpable step-offs or deformities, assosciated paraspinal muscular tenderness. No CVA tenderness. Full ROM intact in bilateral lower extremities. No rashes, lesions, areas of induration or fluctuance, or signs of infection noted., Neuro: Moves all extremities spontaneously. Sensation to light touch intact bilaterally.. No ataxia, gait normal and steady.. No focal neuro deficits. Course Reevaluation(s) Reevaluation #1: Serum labs overall without acute concern. High sensitive troponin negative x2 ECG without findings to suggest ACS/ischemia. D-dimer not consistent with pulmonary embolism. Chest x-ray without acute pathology no consolidation infiltrate to suggest a pneumonia, no pleural effusion. Pain at this time appears most consistent with musculoskeletal strain, are reviewed this case with my attending Dr. Esparza as well who agrees. Will discharge patient home, will send prescription for Lidoderm patches, some prednisone and Valium, recommendation for outpatient follow-up with PCP, physical therapy, and worrisome signs and symptoms that would warrant re-evaluation in the emergency department. Medications Administered Discontinued Medications Generic Name Dose Route Start Last Admin Trade Name Freq PRN Reason Stop Dose Admin Cyclobenzaprine HCl 10 mg 11/13/24 08:15 11/13/24 08:26 Cyclobenzaprine Hcl 10 Mg Tablet PO 11/13/24 08:16 10 mg ONCE ONE Administration Ketorolac Tromethamine 60 mg 11/13/24 05:07 11/13/24 05:11 Ketorolac Tromethamine 60 Mg/2 Ml Vial IM 11/13/24 05:08 60 mg ONCE ONE Administration Ondansetron HCl 4 mg 11/13/24 08:15 11/13/24 08:26 Ondansetron Odt 4 Mg Tab.Roman CARLOS 11/13/24 08:16 4 mg ONCE ONE Administration Medical Decision Making Medical Decision Making [facility] Narrative: Patient is a 34-year-old female with no reported past medical history who presents emergency department for evaluation of midthoracic back pain with onset yesterday without provoking injury or history of similar in the past as per HPI. Pain does radiate intermittently beneath the bilateral breasts and into the center of her chest. She has palpable midline tenderness but no step-offs or deformities and has associated paraspinal muscle tenderness on examination. Atraumatic in nature lower suspicion for an acute spinal fracture. Has a associated chest pain with this. Will obtain CBC to evaluate for leukocytosis/ anemia, CMP and lipase to evaluate for abnormal electrolytes /abnormal renal function/ abnormal hepatic/biliary function, EKG and troponin to evaluate for ischemia/ACS. Chest x-ray to evaluate for consolidation/ infiltrate/ mass/ pulmonary congestion, PERC negative lower suspicion for PE, will obtain D-dimer. She received ketorolac 60 mg IM prior to my assumption of care without relief. Currently experiencing some mild associated nausea as well. Will be provided with Zofran as well as cyclobenzaprine was I am concerned this may be muscular in nature, although can not completely exclude disc herniation though I have a lower suspicion for this based on the presenting symptoms. Lower suspicion for aortic dissection given no high-risk factors, known aneurysm, diabetes, hypertension, Blood pressure and pulses equal to bilateral extremities. No recent fevers, unintentional weight loss, history of IVDA, high-risk past medical history, immunosuppression, recent surgery or lumbar puncture to suggest spinal infection, epidural abscess, malignancy. Differential Diagnosis Differential Diagnoses: The differential diagnosis associated with the presentation includes ( see narrative above) Admission/Observation Consideration of admission/observation: Escalation of care including admission/observation considered ( see narrative above) Lab Data [facility] Lab Attestation statement: I reviewed the patient's lab results. CBC is without leukocytosis anemia or thrombocytopenia. No significant electrolyte derangement. No NIKKY. LFTs and lipase are normal. Troponin negative x2. D-dimer <150. 11/13/24 05:27 11/13/24 05:27 Labs: Lab Results 11/13/24 11/13/24 Range/Units 05:27 08:36 WBC 9.4 (4.8-10.8) X10*3/uL RBC 4.47 (4.20-5.50) X10*6/uL Hgb 13.5 (12.0-16.0) g/dl Hct 39.2 (37.0-47.0) % MCV 87.7 (80.0-98.0) fL MCH 30.2 (27.0-33.0) pg MCHC 34.4 (31.0-35.0) g/dl RDW 12.4 (11.0-16.0) % Plt Count 281 (160-400) X10*3/uL MPV 10.1 (9.4-12.3) fL Immature Gran % (Auto) 0.3 (0.0-0.4) % Neut % (Auto) 56.5 (45-73) % Lymph % (Auto) 33.9 (20-40) % [place]vin % (Auto) 7.6 (2-11) % Eos % (Auto) 1.4 (0-4) % Baso % (Auto) 0.3 (0-2) % Lymph # (Auto) 3.2 (1.2-4.9) X10*3/uL [place]vin # (Auto) 0.7 (0.1-1.2) X10*3/uL Eos # (Auto) 0.1 (0.0-0.4) X10*3/uL Baso # (Auto) 0.0 (0.0-0.2) X10*3/uL Abs Immat Gran (auto) 0.03 (0.00-0.03) X10*3/uL Absolute Neuts (auto) 5.3 (2.0-8.3) x10*3/uL Absolute Nucleated RBC 0.000 (0.0-0.012) X10*3/uL Nucleated RBC % (auto) 0.0 (0.0-0.2) /100WBC D-Dimer High Sensitivty < 150 NG/ML Sodium 142 (135-145) mmol/L Potassium 3.9 (3.3-5.1) mmol/L Chloride 110 H (96-108) mmol/L Carbon Dioxide 23 (22-29) mmol/L Anion Gap 13 (12-20) BUN 17 H (9-16) mg/dL Creatinine 0.74 (0.5-1.4) mg/dL Estim Creat Clear Calc 102.9 Estimated GFR > 60 Random Glucose 102 (60-115) mg/dL Calcium 9.6 (8.4-10.2) mg/dL Total Bilirubin 0.2 (0.0-1.0) mg/dL AST 16 (5-31) U/L ALT 15 (0-31) U/L Alkaline Phosphatase 76 (39-117) U/L Troponin I High Sens < 2.7 < 2.7 (<3.5-17.0) ng/L Total Protein 7.4 (6.5-8.0) g/dL Albumin 4.7 (3.5-5.0) g/dL Lipase 27 (8-78) U/L Independent Interpretation I performed an independent interpretation of an: EKG (ECG revealing normal sinus rhythm with ventricular rate of 63, normal ASAEL, QTC 431, no ST-elevation) and Plain X-Ray (See course narrative) Radiology Impression Discussion of test interpretation with radiology: I have reviewed the radiologist's reading. Radiologist Impression: XR/XR chest 2V IMPRESSION: No acute airspace disease. Stable chest. External Record Review External record reviewed: Outpatient record and Other I attest that I have reviewed patients [employer], and at the time prescribing the patient a controlled substance is appropriate based off of patients diagnosis and treatment plan. Prescription Management I considered prescription management with: Pain Medication Discharge Plan Discharge Clinical Impression: Acute thoracic myofascial strain Qualifiers: Encounter type: initial encounter Qualified Code(s): S29.019A - Strain of muscle and tendon of unspecified wall of thorax, initial encounter Patient Disposition: Home, Self-Care Instructions: Muscle Strain (ED) Additional Instructions: As discussed, your symptoms at this time are most concerning for a muscular strain in this area of your back. Be sure to rest over the next few days apply ice/heat for 10-15 minutes 4-6 times daily. Apply the Lidoderm patch to the area of pain in your back that is most painful leave on for 12 hours and then remove for a 12 hour period to prevent any skin irritation. Prescription has been sent to the pharmacy for an oral steroid, prednisone. Please take this with food to prevent stomach upset. Additionally I have sent a prescription for Valium to the pharmacy, this will work as a relaxant and it can make you drowsy. You should not drive, drink alcohol, or work while taking this medication. Contact your primary care doctor's office today before they closed for the weekend and schedule follow-up appointment ideally for next week. You may benefit from a course of physical therapy. Return back to emergency department any new or worsening symptoms or concerns. Prescriptions: New lidocaine 5 % adhesive patch,medicated 1 patch topical DAILY Qty: 15 0RF Rx Instructions: leave on most painful area for up to 12 hrs prednisone 20 mg tablet 20 mg PO DAILY Qty: 5 0RF diazepam 5 mg tablet 5 mg PO BID PRN (Reason: muscle spasm) Qty: 10 0RF No Action azithromycin 500 mg tablet 500 mg PO BID 5 Days Qty: 10 0RF chlorhexidine gluconate 0.12 % mouthwash 15 ml buccal BID 7 Days Qty: 1893 0RF clindamycin HCl 300 mg capsule 600 mg PO BID 7 Days Qty: 28 0RF ibuprofen 600 mg tablet 600 mg PO Q6H PRN (Reason: pain) Qty: 30 0RF acetaminophen [Tylenol Extra Strength] 500 mg tablet 1,000 mg PO Q6H PRN (Reason: pain) Qty: 30 0RF azithromycin [Zithromax] 250 mg tablet 250 mg PO DAILY 4 Days Qty: 4 0RF Rx Instructions: start on day 2 of therapy cefuroxime axetil 500 mg tablet 500 mg PO BID 7 Days Qty: 14 0RF codeine-guaifenesin 10-100 mg/5 mL liquid 10 ml PO Q6H PRN (Reason: cough) Qty: 237 0RF prednisone 20 mg tablet 40 mg PO DAILY Qty: 10 0RF albuterol sulfate 90 mcg/actuation HFA aerosol inhaler 2 puff inhalation Q6H PRN (Reason: shortness of breath or wheezing) Qty: 8.5 0RF levofloxacin 500 mg tablet 500 mg PO DAILY Qty: 10 0RF ondansetron 4 mg tablet,disintegrating 4 mg PO Q6H PRN (Reason: nausea and vomiting) Qty: 14 0RF ketorolac 10 mg tablet 10 mg PO TID PRN (Reason: pain) Qty: 10 0RF Rx Instructions: Do not use this medication with NSAIDs, only Tylenol if needed Referrals: Physician,None [Primary Care Provider, Medical] Print Language: Lao
[2024-11-13] MEDS: Cyclobenzaprine HCl 10 MG TABLET PO (08:26)
[2024-11-13] MEDS: Ondansetron ODT 4 MG TAB.RAPDIS TRANSLINGU (08:26)
[2024-11-13 08:29] VITALS: BP 106/77; PULSE 88; RESP 20; O2SAT 98
[2024-11-13 08:43] LABS: Lipase 27 U/L (8-78)
[2024-11-13 08:52] LABS: D Dimer High Sensitivity < 150 NG/ML
[2024-11-13 09:04] LABS: Troponin-I High Sensitivity < 2.7 ng/L (<3.5-17.0)
[2024-11-13 09:04] LABS: Troponin-I High Sensitivity < 2.7 ng/L (<3.5-17.0)
[2024-11-13 11:39] VITALS: BP 106/77; PULSE 88; RESP 20; TEMP 36.8; O2SAT 98
== END 2024-11-13 11:45 | disposition home or self-care (01) ==
PROVIDERS: Nurse Practitioner Family; Emergency Provider Emergency Medicine
DX: S29.019A Strain of muscle and tendon of unspecified wall of thorax, initial encounter (principal); M54.2 Cervicalgia; R51.9 Headache, unspecified; N64.4 Mastodynia; R07.89 Other chest pain; M54.50 Low back pain, unspecified; X58.XXXA Exposure to other specified factors, initial encounter; Y93.H3 Activity, building and construction; Y92.9 Unspecified place or not applicable; Y99.8 Other external cause status; Z79.899 Other long term (current) drug therapy
CPT/HCPCS: 36415; 71046; 80053; 83690; 84484; 85025; 85379; 93005; 96372; 99284; 99285; J1885

== ENCOUNTER → 2024-11-13 08:17 | Outpatient (BNV) | payer MEDICAID, SELFPAY | PROVIDERS: Emergency Provider Emergency Medicine; Visit Provider Radiology Diagnostic Radiology | DX: R07.89 Other chest pain (principal) | CPT/HCPCS: 71046 ==

== ENCOUNTER → 2024-11-13 08:17 | Outpatient (BNV) | payer MEDICAID, SELFPAY | PROVIDERS: Emergency Provider Emergency Medicine; Visit Provider Internal Medicine Cardiovascular Disease | DX: R94.31 Abnormal electrocardiogram [ECG] [EKG] (principal); R07.9 Chest pain, unspecified | CPT/HCPCS: 93010 ==

== ENCOUNTER 2025-04-03 11:35 | Emergency (ER) | payer OTHER, MEDICAID, SELFPAY ==
--- NOTE | ~2025-04-03 | CT_ITS ---
CLINICAL HISTORY: neck pain CT cervical spine without contrast Comparison: None Findings: Normal limited view of the intracranial contents. Soft tissues of the neck are normal. Lung apices are normal. Normal vertebral body alignment. No fractures or dislocations. No significant degenerative change. Impression: 1. No cervical vertebral fracture or traumatic malalignment. This document has been electronically signed by: Lazaro Lancaster MD on 04/03/2025 17:21:02
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
[2025-04-03 12:13] VITALS: BP 133/74; PULSE 84; RESP 18; TEMP 36.7; O2SAT 100; BMI 31.9
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
--- OUTSIDE RECORDS SUMMARY | 2025-04-03 14:57 | XMS_ITS | Clinical Summary ---
Author Organization [address] Address [address] [place] [id number] Phone Care Team Providers Care Dispenser Operator Name Role Phone Physician, No Pcp Primary Care Provider Unavaila ble Social History Tobacco Use Types Packs/Day Years Used Date Smoking Tobacco: Never Assessed Comments Unknown Sex and Gender Information Value Date Recorded Sex Assigned at Not on file Legal Sex Female 4:04 PM EDT Gender Identity Not on file Sexual Orientation Not on file Plan of Treatment Health Maintenance Due Date Last Done Comments DTaP,Tdap,and Td Vaccines (1 - Tdap) 2009 Hepatitis B Vaccines (1 of 3 - 19+ 3-dose series) 2009 Cervical Cancer Screening: P ap Smear 10/14/2011 HPV Vaccines (1 - 3-dose SCD M series) 2017 Depression Screening 05/27/2024 HIV Screening 12/01/2024 Hepatitis C Screening 12/01/2024 Social Influencers of Health Screening 12/01/2024 COVID-19 Vaccine ( - 2023-2 5 season) 2025 Influenza Vaccine (#1) 2025 RSV Immunization Adult Patie nts (1 - 1-dose 75+ series) 2065 HIB Vaccines Aged Out No longer eligi ble based on patient's age to complete this topic Hepatitis A Vaccines Aged Out No long er eligible based on patient's age to complete this topic IPV Vaccines Aged Out No longer eligi ble based on patient's age to complete this topic MMR Vaccines Aged Out No longer eligi ble based on patient's age to complete this topic Meningococcal ACWY Vaccine Aged Out N o longer eligible based on patient's age to complete this topic Meningococcal B Vaccine Aged Out No l onger eligible based on patient's age to complete this topic Pneumococcal Vaccine: Pediat rics (0 to 5 Years) and At-Risk Patients (6 to 49 Years) Aged Out No longer eligible b ased on patient's age to complete this topic RSV Immunization Patients Un homero 20 months Aged Out No longer eligible b ased on patient's age to complete this topic Varicella Vaccines Aged Out No longer eligible based on patient's age to complete this topic Insurance [employer] Care Teams Dispenser Operator Relationship Specialty Start Date End Date Physician, No Pcp PCP - General 11/30/24
[2025-04-03 16:46] VITALS: BP 122/68; PULSE 80; RESP 16; TEMP 36.6; O2SAT 100
== END 2025-04-03 16:47 | disposition left against medical advice (07) ==
PROVIDERS: Emergency Provider Emergency Medicine Emergency Medical Services
DX: S09.90XA Unspecified injury of head, initial encounter (principal); R51.9 Headache, unspecified; W50.1XXA Accidental kick by another person, initial encounter; Y93.89 Activity, other specified; Y92.199 Unspecified place in other specified residential institution as the place of occurrence of the external cause; Y99.0 Civilian activity done for income or pay; Z88.0 Allergy status to penicillin; Z88.5 Allergy status to narcotic agent; Z88.6 Allergy status to analgesic agent
CPT/HCPCS: 70450; 70486; 72125; 99283; 99284

== ENCOUNTER → 2025-04-03 12:14 | Outpatient (BNV) | payer OTHER, SELFPAY | PROVIDERS: Emergency Provider Emergency Medicine Emergency Medical Services; Visit Provider Radiology Diagnostic Radiology | DX: M54.2 Cervicalgia (principal); Z04.3 Encounter for examination and observation following other accident; S09.90XA Unspecified injury of head, initial encounter | CPT/HCPCS: 70450; 70486; 72125 ==